=== PATIENT | male | born 1930 | race African-American/Black ===

== ENCOUNTER 2016-10-21 12:33 | Outpatient (CLI) | payer MEDICARE, MEDICAID | END 2016-10-21 14:03 | disposition home or self-care (01) | LOC: CAT 12:33 | DX: R05 Cough (principal) | CPT/HCPCS: 71250 ==

== ENCOUNTER 2018-04-19 15:40 | Emergency (ER) | payer MEDICARE, MEDICAID ==
[~2018-04-19] VITALS: Ht 162.6 cm; Wt 54.4 kg
[2018-04-19 15:50] VITALS: BP 135/56
--- NOTE | 2018-04-19 16:54 | Emergency Room Report ---
History of Present Illness General Chief Complaint: Dyspnea/Respdistress Source: Patient Present Illness HPI this is an 87-year-old male who complains of leg swelling bilaterally for about 10 days. He denies any shortness of breath oor chest pain. No exacerbating or relieving fact Denies any nausea or vomiting. He states he does not take any diuret Allergies: Coded Allergies: PENICILLINS (Verified Allergy, Severe, Hives, 04/19/18) Patient History Past Medical History: COPD Past Surgical History: none Nursing Documentation-[facility] Past Medical History: No History, Except For Hx Hypertension: Yes Hx COPD: Yes Review of Systems All Other Systems: negative except mentioned in HPI Physical Exam Vital Signs Date Time Temp Pulse Resp B/P (MAP) Pulse Ox O2 Delivery O2 Flow Rate FiO2 04/19/18 15:46 98.1 99 28 121/60 89 Room Air Eyes: bilateral eye normal inspection, bilateral eye PERRL ENT: hearing grossly normal, normal pharynx, no angioedema, normal voice Respiratory: chest non-tender, lungs clear, normal breath sounds, speaking full sentences Cardiovascular #2: 2+ carotid (R), 2+ carotid (L), 2+ radial (R), 2+ radial (L) , 2+ dorsalis pedis (R), 2+ dorsalis pedis (L) Gastrointestinal: normal bowel sounds, non tender, soft, non-distended, no guarding, no rebound Musculoskeletal: back normal, gait/station normal, normal range of motion, non- tender, calf tenderness Neurologic: alert, oriented x3, responsive, motor strength/tone normal, sensory intact, speech normal Skin: normal color, no rash, warm/dry, well hydrated Medical Decision Making Diagnostic Impression: Primary Impression: Dyspnea ER Course Patient presented with significant complexes or risk requiring multiple bedside evaluations. Patient alert and nontoxic-appearing. No other associated symptoms. Particularly very concerned about possible congestive heart failure, pulmonary edema, pneumonia, pneumothorax. Also considered acute coronary syndrome. EKG and blood work was reviewed. The patient is not tachypneic, tachycardic, hypoxic. At this time, I feel the patient may be discharged home with very close follow-up with his primary care physician and to return is any change in symptoms or worsening symptoms. Laboratory Tests Test 04/19/18 16:55 White Blood Count 7.1 K/UL (4.8-10.8) Red Blood Count 4.00 M/UL (4.70-6.10) L Hemoglobin 11.1 G/DL (14.2-18.0) L Hematocrit 34.2 % (42.0-52.0) L Mean Corpuscular Volume 85 FL (80-99) Mean Corpuscular Hemoglobin 27.7 PG (27.0-31.0) Mean Corpuscular Hemoglobin Concent 32.4 G/DL (32.0-36.0) Red Cell Distribution Width 13.5 % (11.6-14.8) Platelet Count 323 K/UL (150-450) Mean Platelet Volume 5.6 FL (6.5-10.1) L Neutrophils (%) (Auto) 52.8 % (45.0-75.0) Lymphocytes (%) (Auto) 31.1 % (20.0-45.0) Monocytes (%) (Auto) 7.7 % (1.0-10.0) Eosinophils (%) (Auto) 6.8 % (0.0-3.0) H Basophils (%) (Auto) 1.6 % (0.0-2.0) Sodium Level 144 MMOL/L (136-145) Potassium Level 3.1 MMOL/L (3.5-5.1) L Chloride Level 107 MMOL/L (98-107) Carbon Dioxide Level 29 MMOL/L (21-32) Anion Gap 8 mmol/L (5-15) Blood Urea Nitrogen 9 mg/dL (7-18) Creatinine 0.8 MG/DL (0.55-1.30) Estimate Glomerular Filtration Rate mL/min (>60) Glucose Level 102 MG/DL (74-106) Calcium Level 9.4 MG/DL (8.5-10.1) Total Bilirubin 0.3 MG/DL (0.2-1.0) Aspartate Amino Transferase (AST) 23 U/L (15-37) Alanine Aminotransferase (ALT) 17 U/L (12-78) Alkaline Phosphatase 74 U/L (46-116) Troponin I 0.007 ng/mL (0.000-0.056) Pro-B-Type Natriuretic Peptide 126 pg/mL (0-125) H Total Protein 8.4 G/DL (6.4-8.2) H Albumin 3.0 G/DL (3.4-5.0) L Globulin 5.4 g/dL Albumin/Globulin Ratio 0.6 (1.0-2.7) L EKG Diagnostic Results EKG Time: 17:45 Rate: normal Rhythm: NSR ST Segments: no acute changes ASA given to the pt in ED: No Chest X-Ray Diagnostic Results Chest X-Ray Diagnostic Results : # of Views/Limited/Complete: 1 View Indication: Shortness of Breath EP Interpretation: Yes PA Xray: Interpretation reviewed Last Vital Signs Date Time Temp Pulse Resp B/P (MAP) Pulse Ox O2 Delivery O2 Flow Rate FiO2 04/19/18 16:51 93 22 Room Air 04/19/18 15:50 98.1 135/56 96 Status: unchanged Disposition: HOME, SELF-CARE Condition: Stable Patient Instructions: Shortness of Breath, [id number] STACIA WILLETT Apr 19, 2018 16:54
--- NOTE | 2018-04-19 17:25 | Diagnostic Imaging Report ---
Indication: Shortness of breath Technique: One view of the chest Comparison: none Findings: Lungs are hyperinflated. No acute infiltrates, effusions, or congestion. Tortuous calcified aorta. Normal heart size. Upper mediastinum unremarkable. Impression: No acute process. Hyperinflation, likely COPD
[2018-04-19 17:30] LABS: BASOPHILS % (AUTO) 1.6 % (0.0-2.0); EOSINOPHILS % (AUTO) 6.8 % (0.0-3.0); HEMATOCRIT 34.2 % (42.0-52.0); HEMOGLOBIN 11.1 G/DL (14.2-18.0); LYMPHOCYTES % (AUTO) 31.1 % (20.0-45.0); MEAN CORPUSCULAR VOLUME 85 FL (80-99); MONOCYTES % (AUTO) 7.7 % (1.0-10.0); NEUTROPHILS % (AUTO) 52.8 % (45.0-75.0); PLATELET COUNT 323 K/UL (150-450); RED CELL DISTRIBUTION WIDTH 13.5 % (11.6-14.8); WHITE BLOOD COUNT 7.1 K/UL (4.8-10.8)
[2018-04-19 17:41] LABS: ANION GAP 8 mmol/L (5-15); BLOOD UREA NITROGEN 9 mg/dL (7-18); CALCIUM 9.4 MG/DL (8.5-10.1); CARBON DIOXIDE 29 MMOL/L (21-32); CHLORIDE 107 MMOL/L (98-107); CREATININE 0.8 MG/DL (0.55-1.30); POTASSIUM 3.1 MMOL/L (3.5-5.1); SODIUM 144 MMOL/L (136-145)
[2018-04-19 17:50] VITALS: BP 132/53
[2018-04-19 17:52] LABS: ALANINE AMINOTRANSFERASE 17 U/L (12-78); ALBUMIN/GLOBULIN RATIO 0.6 (1.0-2.7); ALKALINE PHOSPHATASE 74 U/L (46-116); ASPARTATE AMINO TRANSFERASE 23 U/L (15-37); BILIRUBIN,TOTAL 0.3 MG/DL (0.2-1.0)
[2018-04-19 20:00] VITALS: BP 126/61
[2018-04-19 20:15] VITALS: BP 126/61
== END 2018-04-19 20:10 | disposition home or self-care (01) ==
LOC: EMR 16:58
DX: R06.00 Dyspnea, unspecified (principal); J44.9 Chronic obstructive pulmonary disease, unspecified; I10 Essential (primary) hypertension; Z88.0 Allergy status to penicillin
CPT/HCPCS: 36415; 71045; 80053; 83880; 84484; 85025; 93005; 99283

== ENCOUNTER 2018-05-18 15:28 | Inpatient (IN) | payer MEDICARE, MEDICAID ==
[~2018-05-18] VITALS: Ht 170.2 cm; Wt 52.6 kg
[2018-05-18] MEDS ORDERED: Albuterol/Ipratropium 3ml neb HHN ONE (15:45)
[2018-05-18 16:17] LABS: BASOPHILS % (AUTO) 1.3 % (0.0-2.0); EOSINOPHILS % (AUTO) 0.4 % (0.0-3.0); HEMATOCRIT 41.1 % (42.0-52.0); HEMOGLOBIN 12.7 G/DL (14.2-18.0); LYMPHOCYTES % (AUTO) 12.8 % (20.0-45.0); MEAN CORPUSCULAR VOLUME 84 FL (80-99); MONOCYTES % (AUTO) 8.8 % (1.0-10.0); NEUTROPHILS % (AUTO) 76.8 % (45.0-75.0); PLATELET COUNT 310 K/UL (150-450); RED CELL DISTRIBUTION WIDTH 13.8 % (11.6-14.8); WHITE BLOOD COUNT 8.1 K/UL (4.8-10.8)
--- NOTE | 2018-05-18 16:18 | Diagnostic Imaging Report ---
Indication: Dyspnea Comparison: None A single view chest radiograph was obtained. Findings: Lungs are hyperexpanded. There is slight elevation of the left hemidiaphragm. There is a prominent skinfold oriented vertically along the left lateral chest. This is not a pneumothorax. The bones are osteopenic. The heart is normal in size. Aorta is calcified. IMPRESSION: No acute findings. COPD
[2018-05-18 16:28] LABS: ANION GAP 14 mmol/L (5-15); BLOOD UREA NITROGEN 14 mg/dL (7-18); CALCIUM 9.6 MG/DL (8.5-10.1); CARBON DIOXIDE 29 MMOL/L (21-32); CHLORIDE 107 MMOL/L (98-107); CREATININE 0.8 MG/DL (0.55-1.30); POTASSIUM 3.2 MMOL/L (3.5-5.1); SODIUM 150 MMOL/L (136-145)
[2018-05-18 16:29] VITALS: BP 190/75
--- NOTE | 2018-05-18 16:34 | Diagnostic Imaging Report ---
Indication: Altered mental status Technique: Contiguous 5 mm thick transaxial imaging of the head obtained in a Siemens Sensation [address] scanner. Soft tissue and bone windows generated. Automatic Exposure Control was utilized. Total Dose length Product (DLP): 1576.[address] Dose Index Volume (CTDIvol): 70.38 mGy Comparison: none Findings: There is marked prominence of the ventricles, basal cisterns, and cerebral sulci consistent with atrophy. Moderate to severe nonspecific, white matter hypoattenuation is noted throughout the brain likely due to chronic small vessel disease. There are cystic foci within the thalami bilaterally, the right putamen, the left caudate, granda radiata, findings consistent with old small vessel infarcts. There is no midline shift, edema, acute hemorrhage, mass effect, or abnormal extra-axial fluid collections. Bones and extra osseous soft tissues are unremarkable. There is artifact in the posterior fossa limiting evaluation. Impression: No acute intracranial bleed, mass effect or edema identified. Multiple old lacunar infarcts. Severe atrophy of the brain. Moderate to severe chronic small vessel disease involving white matter tracts. The CT scanner at [facility] is accredited by the [employer] and the scans are performed using dose optimization techniques as appropriate to a performed exam including Automatic Exposure control.
--- NOTE | 2018-05-18 16:36 | Emergency Room Report ---
History of Present Illness General Chief Complaint: Altered Level of Consciousness Source: Patient, EMS Present Illness HPI Patient is an 87-year-old male brought in by EMS after being found lying on the ground. The patient lives by himself. He was normal noted to have prior history of COPD. Patient had been noted to be unable to ambulate. Allergies: Coded Allergies: PENICILLINS (Verified Allergy, Severe, Hives, 04/19/18) Patient History Past Medical History: see triage record Reviewed Nursing Documentation: PMH: Agreed; PSxH: Agreed Nursing Documentation-PMH Past Medical History: No History, Except For Hx Hypertension: Yes Hx Asthma: Yes Hx COPD: Yes Hx Cancer: Yes - prostate Review of Systems All Other Systems: negative except mentioned in HPI Physical Exam Vital Signs Date Time Temp Pulse Resp B/P (MAP) Pulse Ox O2 Delivery O2 Flow Rate FiO2 05/18/18 15:25 102 16 190/96 97 Room Air 05/18/18 16:18 21 05/18/18 16:29 98.0 Sp02 EP Interpretation: reviewed, normal General Appearance: lethargic, thin, Chronically Ill Head: atraumatic ENT: normal ENT inspection, dry mucus membranes Neck: normal inspection, full range of motion, supple, no bony tend Respiratory: normal inspection, no respiratory distress, no retraction, wheezing Cardiovascular #1: no edema, tachycardia Gastrointestinal: normal inspection, normal bowel sounds, non tender, soft, no guarding, no hernia Genitourinary: no CVA tenderness Musculoskeletal: normal inspection, back normal, normal range of motion Neurologic: responsive, lab clerk III-XII nml as tested, motor weakness, other - confused, able to state name Psychiatric: normal inspection, judgement/insight normal, mood/affect normal Skin: normal inspection, normal color, no rash Medical Decision Making Diagnostic Impression: Primary Impression: Altered level of consciousness Additional Impressions: COPD exacerbation Dehydration ER Course Patient presented for altered mental status. Differential diagnosis included but was not limited to ischemic stroke, subarachnoid hemorrhage, hypoglycemia, spinal cord injury, neurodegenerative disorder, urinary tract infection, hypoxemia. The patient was noted to have markedly confused mental status. CT head showed diffuse atrophy without evident intracranial hemorrhage or CVA. The patient started on IV hydration and given breathing treatments. Initial laboratory testing showed a mildly elevated CPK. Dr. Julien Chery was contacted for inpatient management. Labs Test 05/18/18 15:56 05/18/18 16:44 White Blood Count 8.1 K/UL (4.8-10.8) Red Blood Count 4.90 M/UL (4.70-6.10) Hemoglobin 12.7 G/DL (14.2-18.0) Hematocrit 41.1 % (42.0-52.0) Mean Corpuscular Volume 84 FL (80-99) Mean Corpuscular Hemoglobin 26.0 PG (27.0-31.0) Mean Corpuscular Hemoglobin Concent 31.0 G/DL (32.0-36.0) Red Cell Distribution Width 13.8 % (11.6-14.8) Platelet Count 310 K/UL (150-450) Mean Platelet Volume 7.1 FL (6.5-10.1) Neutrophils (%) (Auto) 76.8 % (45.0-75.0) Lymphocytes (%) (Auto) 12.8 % (20.0-45.0) Monocytes (%) (Auto) 8.8 % (1.0-10.0) Eosinophils (%) (Auto) 0.4 % (0.0-3.0) Basophils (%) (Auto) 1.3 % (0.0-2.0) Sodium Level 150 MMOL/L (136-145) Potassium Level 3.2 MMOL/L (3.5-5.1) Chloride Level 107 MMOL/L (98-107) Carbon Dioxide Level 29 MMOL/L (21-32) Anion Gap 14 mmol/L (5-15) Blood Urea Nitrogen 14 mg/dL (7-18) Creatinine 0.8 MG/DL (0.55-1.30) Estimat Glomerular Filtration Rate mL/min (>60) Glucose Level 108 MG/DL (74-106) Lactic Acid Level 1.50 mmol/L (0.4-2.0) Calcium Level 9.6 MG/DL (8.5-10.1) Phosphorus Level 3.6 MG/DL (2.5-4.9) Magnesium Level 2.0 MG/DL (1.8-2.4) Total Bilirubin 0.5 MG/DL (0.2-1.0) Aspartate Amino Transf (AST/SGOT) 51 U/L (15-37) Alanine Aminotransferase (ALT/SGPT) 30 U/L (12-78) Alkaline Phosphatase 66 U/L (46-116) Total Creatine Kinase 651 U/L (26-308) Creatine Kinase MB 3.5 NG/ML (0.0-3.6) Creatine Kinase MB Relative Index 0.5 Troponin I 0.018 ng/mL (0.000-0.056) Total Protein 8.5 G/DL (6.4-8.2) Albumin 3.2 G/DL (3.4-5.0) Globulin 5.3 g/dL Albumin/Globulin Ratio 0.6 (1.0-2.7) Lipase 51 U/L (73-393) Urine Color Yellow Urine Appearance Clear Urine pH 5 (4.5-8.0) Urine Specific [place] 1.020 (1.005-1.035) Urine Protein 3+ (NEGATIVE) Urine Glucose (UA) Negative (NEGATIVE) Urine Ketones 4+ (NEGATIVE) Urine Blood 5+ (NEGATIVE) Urine Nitrite Negative (NEGATIVE) Urine Bilirubin Negative (NEGATIVE) Urine Urobilinogen Normal MG/DL (0.0-1.0) Urine Leukocyte Esterase Negative (NEGATIVE) Urine RBC 15-20 /HPF (0 - 0) Urine WBC 2-4 /HPF (0 - 0) Urine Squamous Epithelial Cells None /LPF (NONE/OCC) Urine Bacteria Few /HPF (NONE) EKG Diagnostic Results Rate: tachycardiac Rhythm: NSR ST Segments: no acute changes Rhythm Strip Diag. Results EP Interpretation: yes Rhythm: NSR, no PVC's, no ectopy Last Vital Signs Date Time Temp Pulse Resp B/P (MAP) Pulse Ox O2 Delivery O2 Flow Rate FiO2 05/18/18 16:29 93 23 Room Air 05/18/18 16:29 98.0 190/75 99 05/18/18 16:21 21 Status: unchanged Disposition: ADMITTED INPATIENT Condition: Serious Alex Yanez MD May 18, 2018 16:36
[2018-05-18 16:46] LABS: ALANINE AMINOTRANSFERASE 30 U/L (12-78); ALBUMIN 3.2 G/DL (3.4-5.0); ALBUMIN/GLOBULIN RATIO 0.6 (1.0-2.7); ALKALINE PHOSPHATASE 66 U/L (46-116); ASPARTATE AMINO TRANSFERASE 51 U/L (15-37); BILIRUBIN,TOTAL 0.5 MG/DL (0.2-1.0); CKMB 3.5 NG/ML (0.0-3.6); CREATINE KINASE 651 U/L (26-308); PHOSPHORUS 3.6 MG/DL (2.5-4.9)
--- NOTE | 2018-05-18 16:49 | Diagnostic Imaging Report ---
Indication: Abdominal pain Technique: Continuous helical transaxial imaging of the abdomen and pelvis was obtained from the lung bases to the pubic symphysis. No intravenous contrast was administered. Coronal 2-D reformats were also obtained. Automatic Exposure Control was utilized. Total Dose length Product (DLP): 491.[address] Dose Index Volume (CTDIvol): 11.02 mGy Comparison: none Findings: Lung bases are clear. There is some mild scarring at the left lung base. There are extensive calcifications present within the liver and spleen system with old granulomatous disease. Kidneys are unremarkable. There is no hydronephrosis. There is some layering hyperdensity within the gallbladder which may be small stones or sludge. Aorta is moderately calcified. At the junction of the head and body of the pancreas there is suggestion of a small cystic focus. This is questionable as seen for example on axial image 29. Normal appendix is demonstrated. Urinary bladder is distended. There are bilateral inguinal hernias containing fat. The prostate gland is enlarged measuring approximately 4.8 x 5.5 x 5.5 cm. Diverticula noted throughout the colon. There is narrowing of intervertebral discs and accompanying endplate osteophyte formation. Hypertrophied facet joints also demonstrated.. Bones are osteopenic. In addition there are thickened trabecula markings and question of some cortical thickening involving the right ilium. Query Paget's disease. There is a nonspecific sclerotic focus also noted within the left ilium adjacent to the SI joint. IMPRESSION: Gallbladder sludge versus stones. Nonspecific ill-defined sclerotic focus in the left ilium measuring 2.6 cm. The nature of this finding is not known but differential includes metastatic disease. Further evaluation is recommended. Moderate arterial vascular disease. Abnormal appearance of the right ilium with increased trabecular markings, nonspecific. Consider possibility of Paget's disease. Old granulomatous disease. Diverticulosis of the colon. No definite diverticulitis. Distended urinary bladder Prostate hypertrophy Small bilateral inguinal hernias containing fat. Normal appendix. Degenerative changes of the spine The CT scanner at [facility] is accredited by the [employer] and the scans are performed using dose optimization techniques as appropriate to a performed exam including Automatic Exposure control.
[2018-05-18 17:11] LABS: APPEARANCE,URINE CLEAR; BILIRUBIN, URINE NEGATIVE (NEGATIVE); GLUCOSE, URINE (UA) NEGATIVE (NEGATIVE); KETONES,URINE 4+ (NEGATIVE); LEUKOCYTE ESTERASE ,URINE NEGATIVE (NEGATIVE); NITRITE,URINE NEGATIVE (NEGATIVE); PH,URINE 5 (4.5-8.0); PROTEIN,URINE 3+ (NEGATIVE); UROBILINOGEN,URINE NORMAL MG/DL (0.0-1.0)
[2018-05-18] MEDS ORDERED: Solu-MEDROL 125mg Inj IVP ONE (17:15)
[2018-05-18 17:16] LABS: COLOR,URINE YELLOW
[2018-05-18] MEDS ORDERED: Miralax 17gm pkt ORAL PRN (18:30)
[2018-05-18] MEDS ORDERED: LORazepam Inj 2mg/ml 1ml IV PRN (18:30)
[2018-05-18] MEDS ORDERED: Zolpidem 5mg tab ORAL PRN (18:30)
[2018-05-18] MEDS ORDERED: Mylanta II UD 30ml ORAL PRN (18:30)
[2018-05-18 19:06] VITALS: BP 161/73
[2018-05-18] MEDS ORDERED: Morphine Sulfate 4mg/ml Inj (IV/IM USE ONLY) IVP PRN (20:00)
[2018-05-18 21:25] VITALS: BP 160/75
[2018-05-19] VITALS: BP 151/72
[2018-05-19 04:00] VITALS: BP 135/72
[2018-05-19 04:07] LABS: HEMATOCRIT 40.1 % (42.0-52.0); HEMOGLOBIN 12.5 G/DL (14.2-18.0); MEAN CORPUSCULAR VOLUME 83 FL (80-99); PLATELET COUNT 278 K/UL (150-450); RED BLOOD COUNT 4.81 M/UL (4.70-6.10); RED CELL DISTRIBUTION WIDTH 13.9 % (11.6-14.8); WHITE BLOOD COUNT 6.5 K/UL (4.8-10.8)
[2018-05-19 04:42] LABS: ALANINE AMINOTRANSFERASE 24 U/L (12-78); ALBUMIN 2.8 G/DL (3.4-5.0); ALBUMIN/GLOBULIN RATIO 0.5 (1.0-2.7); ALKALINE PHOSPHATASE 63 U/L (46-116); ANION GAP 14 mmol/L (5-15); ASPARTATE AMINO TRANSFERASE 43 U/L (15-37); BILIRUBIN,TOTAL 0.4 MG/DL (0.2-1.0); BLOOD UREA NITROGEN 15 mg/dL (7-18); CALCIUM 9.2 MG/DL (8.5-10.1); CARBON DIOXIDE 26 MMOL/L (21-32); CHLORIDE 108 MMOL/L (98-107); CHOLESTEROL 149 MG/DL (< 200); CREATININE 0.9 MG/DL (0.55-1.30); HDL CHOLESTEROL 88 MG/DL (40-60); POTASSIUM 3.3 MMOL/L (3.5-5.1); SODIUM 148 MMOL/L (136-145); TRIGLYCERIDES 60 MG/DL (30-150)
[2018-05-19 08:00] VITALS: BP 141/55
--- NOTE | 2018-05-19 10:53 | Consultation ---
History of Present Illness General Date patient seen: May 19, 2018 Time patient seen: 09:45 Chief Complaint: Altered Level of Consciousness Referring physician: dr Stanton Reason for Consultation: COPD, possible exacerbation Present Illness HPI 87y/old male with PMH of hypertension, COPD/asthma, prostate cancer, brought to the emergency department by paramedics after being found lying on the ground. Patient lives by himself. Apparently he was awake and walking prior to this incident. Patient noted to be unable to ambulate. Upon evaluation , patient 's blood pressure was severely elevated- 190/96. Pulse was 102 Laboratory workup revealed no leukocytosis, hemoglobin 12.7 ,hematocrit 41.1. Potassium 3.2. Lactic acid 1.5 AST 51 CK 651 Troponin negative , ECG SR, no acute ischemic changes Albumin 3.2 TSH elevated 14 Urinalysis revealed no evidence of UTI. CT of the head revealed no acute intracranial bleeding mass effect or edema. Multiple old lacunar infarcts. Severe atrophy of the brain. Moderate to severe chronic small vessel disease, involving white matter tracts. Patient admitted with diagnoses of altered level of consciousness, dehydration , COPD, for further management Allergies: Coded Allergies: PENICILLINS (Verified Allergy, Severe, Hives, 04/19/18) Medication History Scheduled Albuterol Sulfate* (Albuterol Sulfate Mdi*), 2 PUFF INH Q4H, (Reported) Diazepam* (Diazepam*), 10 MG ORAL BEDTIME, (Reported) Lisinopril (Lisinopril*), 40 MG ORAL DAILY, (Reported) Nifedipine* (Nifedipine Er*), 90 MG ORAL DAILY, (Reported) Patient History Healthcare decision maker N Resuscitation status Full Code Advanced Directive on File Past Medical/Surgical History Past Medical/Surgical History: (1) Prostate CA (2) HTN (hypertension) (3) COPD (chronic obstructive pulmonary disease) Review of Systems ROS Narrative unable to obtain due to altered level of consciousness Physical Exam General Appearance: alert - confused, garbled speech Lines, tubes and drains: peripheral HEENT: normocephalic, atraumatic Neck: supple Respiratory/Chest: lungs clear - with moderate air exchange Cardiovascular/Chest: normal peripheral pulses, no JVD, tachycardia - ST with PAC Abdomen: normal bowel sounds, soft Skin Exam: warm/dry Neurologic: abnormal gait, other - awake, confused, garbled speech Last 24 Hour Vital Signs Date Time Temp Pulse Resp B/P (MAP) Pulse Ox O2 Delivery O2 Flow Rate FiO2 05/19/18 08:00 Room Air 05/19/18 08:00 87 05/19/18 08:00 97.2 86 22 141/55 (83) 93 05/19/18 04:00 Room Air 05/19/18 04:00 97.4 84 20 135/72 (93) 95 05/19/18 04:00 100 05/19/18 00:00 97.8 84 18 151/72 (98) 97 05/19/18 00:00 Room Air 05/19/18 00:00 88 05/18/18 22:00 Room Air 05/18/18 21:25 97.9 104 20 160/75 (103) 97 05/18/18 21:21 103 05/18/18 21:20 97.8 84 22 127/50 97 Room Air 05/18/18 19:06 98.0 78 18 161/73 96 Room Air 05/18/18 16:29 93 23 Room Air 05/18/18 16:29 98.0 93 23 190/75 99 Room Air 05/18/18 16:23 100 25 96 Room Air 21 05/18/18 16:21 101 24 98 Room Air 21 05/18/18 16:18 101 24 Room Air 21 05/18/18 15:25 102 16 190/96 97 Room Air Intake and Output 05/18/18 05/19/18 18:59 06:59 Output Total 0 ml 200 ml Balance 0 ml -200 ml Output Urine Total 0 ml 200 ml Laboratory Tests Test 05/18/18 15:56 05/18/18 16:44 05/19/18 03:40 White Blood Count 8.1 K/UL (4.8-10.8) 6.5 K/UL (4.8-10.8) Red Blood Count 4.90 M/UL (4.70-6.10) 4.81 M/UL (4.70-6.10) Hemoglobin 12.7 G/DL (14.2-18.0) L 12.5 G/DL (14.2-18.0) L Hematocrit 41.1 % (42.0-52.0) L 40.1 % (42.0-52.0) L Mean Corpuscular Volume 84 FL (80-99) 83 FL (80-99) Mean Corpuscular Hemoglobin 26.0 PG (27.0-31.0) L 25.9 PG (27.0-31.0) L Mean Corpuscular Hemoglobin Concent 31.0 G/DL (32.0-36.0) L 31.0 G/DL (32.0-36.0) L Red Cell Distribution Width 13.8 % (11.6-14.8) 13.9 % (11.6-14.8) Platelet Count 310 K/UL (150-450) 278 K/UL (150-450) Mean Platelet Volume 7.1 FL (6.5-10.1) 7.3 FL (6.5-10.1) Neutrophils (%) (Auto) 76.8 % (45.0-75.0) H % (45.0-75.0) Lymphocytes (%) (Auto) 12.8 % (20.0-45.0) L % (20.0-45.0) Monocytes (%) (Auto) 8.8 % (1.0-10.0) % (1.0-10.0) Eosinophils (%) (Auto) 0.4 % (0.0-3.0) % (0.0-3.0) Basophils (%) (Auto) 1.3 % (0.0-2.0) % (0.0-2.0) Sodium Level 150 MMOL/L (136-145) H 148 MMOL/L (136-145) H Potassium Level 3.2 MMOL/L (3.5-5.1) L 3.3 MMOL/L (3.5-5.1) L Chloride Level 107 MMOL/L (98-107) 108 MMOL/L (98-107) H Carbon Dioxide Level 29 MMOL/L (21-32) 26 MMOL/L (21-32) Anion Gap 14 mmol/L (5-15) 14 mmol/L (5-15) Blood Urea Nitrogen 14 mg/dL (7-18) 15 mg/dL (7-18) Creatinine 0.8 MG/DL (0.55-1.30) 0.9 MG/DL (0.55-1.30) Estimat Glomerular Filtration Rate mL/min (>60) mL/min (>60) Glucose Level 108 MG/DL (74-106) H 147 MG/DL (74-106) H Lactic Acid Level 1.50 mmol/L (0.4-2.0) Calcium Level 9.6 MG/DL (8.5-10.1) 9.2 MG/DL (8.5-10.1) Phosphorus Level 3.6 MG/DL (2.5-4.9) Magnesium Level 2.0 MG/DL (1.8-2.4) Total Bilirubin 0.5 MG/DL (0.2-1.0) 0.4 MG/DL (0.2-1.0) Aspartate Amino Transf (AST/SGOT) 51 U/L (15-37) H 43 U/L (15-37) H Alanine Aminotransferase (ALT/SGPT) 30 U/L (12-78) 24 U/L (12-78) Alkaline Phosphatase 66 U/L (46-116) 63 U/L (46-116) Total Creatine Kinase 651 U/L (26-308) H Creatine Kinase MB 3.5 NG/ML (0.0-3.6) Creatine Kinase MB Relative Index 0.5 Troponin I 0.018 ng/mL (0.000-0.056) Total Protein 8.5 G/DL (6.4-8.2) H 8.1 G/DL (6.4-8.2) Albumin 3.2 G/DL (3.4-5.0) L 2.8 G/DL (3.4-5.0) L Globulin 5.3 g/dL 5.3 g/dL Albumin/Globulin Ratio 0.6 (1.0-2.7) L 0.5 (1.0-2.7) L Lipase 51 U/L (73-393) L Urine Color Yellow Urine Appearance Clear Urine pH 5 (4.5-8.0) Urine Specific [place] 1.020 (1.005-1.035) Urine Protein 3+ (NEGATIVE) H Urine Glucose (UA) Negative (NEGATIVE) Urine Ketones 4+ (NEGATIVE) H Urine Blood 5+ (NEGATIVE) H Urine Nitrite Negative (NEGATIVE) Urine Bilirubin Negative (NEGATIVE) Urine Urobilinogen Normal MG/DL (0.0-1.0) Urine Leukocyte Esterase Negative (NEGATIVE) Urine RBC 15-20 /HPF (0 - 0) H Urine WBC 2-4 /HPF (0 - 0) Urine Squamous Epithelial Cells None /LPF (NONE/OCC) Urine Bacteria Few /HPF (NONE) Neutrophils % (Manual) Pending Lymphocytes % (Manual) Pending Platelet Estimate Pending Platelet Morphology Pending Triglycerides Level 60 MG/DL (30-150) Cholesterol Level 149 MG/DL (< 200) LDL Cholesterol 43 mg/dL (<100) HDL Cholesterol 88 MG/DL (40-60) H Cholesterol/HDL Ratio 1.7 (3.3-4.4) L Thyroid Stimulating Hormone (TSH) 14.047 uiU/mL (0.358-3.740) Microbiology Date/Time Source Procedure Growth Status 05/18/18 15:58 Nasal Nares Influenza Types A,B Antigen (ALEJANDRO) - Final Complete Height (Feet): 5 Height (Inches): 7.00 Weight (Pounds): 115 Medications Current Medications Medications (Trade) Dose Ordered Sig/Rafa Route PRN Reason Start Time Stop Time Status Last Admin Dose Admin Acetaminophen (Tylenol) 650 mg Q4H PRN ORAL fever 05/18/18 18:30 06/17/18 18:29 Al Hydroxide/Mg Hydroxide (Mylanta II) 30 ml Q6H PRN ORAL dyspepsia 05/18/18 18:30 06/17/18 18:29 Dextrose (Dextrose 50%) STAT PRN IV Hypoglycemia 05/18/18 18:30 06/17/18 18:29 Lorazepam (Ativan 2mg/ml 1ml) 0.5 mg Q4H PRN IV For Anxiety 05/18/18 18:30 05/25/18 18:29 Morphine Sulfate (Morphine Sulfate) 2 mg Q4H PRN IVP pain 05/18/18 20:00 05/25/18 19:59 Ondansetron HCl (Zofran) 4 mg Q6H PRN IVP Nausea & Vomiting 05/18/18 18:30 06/17/18 18:29 Polyethylene Glycol (Miralax) 17 gm HSPRN PRN ORAL Constipation 05/18/18 18:30 06/17/18 18:29 Zolpidem Tartrate (Ambien) 5 mg HSPRN PRN ORAL Insomnia 05/18/18 18:30 05/25/18 18:29 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 COPD Dehydration Hx of prostate Ca Sclerotic focus in the left ilium, r/o bone mets Hyper Na ( due to dehydration ) Hypokalemia Malnutrition Elevated TSH PLAN OF CARE RAFAEL CT head no acute IC pathology, 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
[2018-05-19 12:00] VITALS: BP 151/68
[2018-05-19] MEDS ORDERED: Albuterol/Ipratropium 3ml neb HHN PRN (15:30)
[2018-05-19 16:00] VITALS: BP 133/64
--- NOTE | 2018-05-19 19:00 | History and Physical Report ---
DATE OF ADMISSION: 05/19/2018 CONSULTANTS: 1. Bridger Robin M.D. 2. Ang Hickman M.D. 3. Andrey Snider M.D. 4. Moo Huber M.D. 5. Brandon De La Torre M.D. CHIEF COMPLAINT: Altered mental status, fall, could not get up, dehydration, hypertension, and chronic obstructive pulmonary disease exacerbation. BRIEF HISTORY: This is an 87-year-old male, who lives at home by himself, apparently fell in the evening and could not get up. He was trapped there all night. Apparently per ER, the patient was found down and brought to [facility] last night for care. He did not lose consciousness. No chest pain. No shortness of breath. The patient is diagnosed with altered mental status, COPD exacerbation, dehydration, hypertension, and admitted to [facility] for further care. Currently, slightly short of breath. Slightly weak in bed, oriented x2, and in no acute distress. REVIEW OF SYSTEMS: No chest pain. Slight short of breath. No nausea, vomiting, or diarrhea. PAST MEDICAL HISTORY: As mentioned, hypertension, chronic obstructive pulmonary disease, and dehydration. PAST SURGERIES: None. MEDICATIONS: Include morphine, Tylenol, MiraLAX, Zofran, Ambien, Ativan, intravenous fluids, potassium, methylprednisolone, and albuterol. ALLERGIES: Penicillin. SOCIAL HISTORY: No smoking. No alcohol. No intravenous drug abuse. FAMILY HISTORY: Noncontributory. PHYSICAL EXAMINATION: GENERAL: Calm in bed, oriented x2. Slight short of breath. VITAL SIGNS: Temperature 97 degrees, pulse 84, respirations 20, and blood pressure 135/72. CARDIOVASCULAR: No murmurs. LUNGS: Poor air exchange. ABDOMEN: Bowel sounds distant. EXTREMITIES: No cyanosis, clubbing, or edema. NEUROLOGIC: The patient moves all extremities, slightly weak. LABORATORY AND DIAGNOSTIC DATA: Labs, at this time, show hemoglobin 12.5, otherwise CBC is normal. BMP shows sodium 148, potassium 3.3, chloride 108, glucose 147. AST 43. Troponin 0.018. Albumin 2.8. Urinalysis show 5+ blood, 4+ ketones, and 3+ protein. ASSESSMENT: 1. Altered mental status. 2. Chronic obstructive pulmonary disease exacerbation. 3. Dehydration. 4. Anemia. 5. Hypertension. 6. Diabetes. 7. Malnutrition. PLAN: 1. O2 and pulmonary treatment. 2. Antibiotics per Infectious Disease p.r.n. 3. Blood pressure and blood sugar control. 4. Dietary followup. 5. Resume home medications. 6. CBC and BMP in the morning. Julien Chery D.O. DR: [facility]IONEL JOB#: [id number] CC: MARGIE
[2018-05-19 20:00] VITALS: BP 141/41
[2018-05-19] MEDS ORDERED: NIFEDIPINE ER60 M2 ORAL (20:07)
[2018-05-19] MEDS ORDERED: LISINOPRIL20 MG ORAL (20:12)
[2018-05-19] MEDS ORDERED: DIAZEPAM10 MG ORAL (20:12)
[2018-05-19] MEDS ORDERED: ALBUTEROL SULF8.5 GM INH (20:13)
--- NOTE | 2018-05-19 20:15 | Consultation ---
DATE OF CONSULTATION: 05/19/2018 GASTROLOGY CONSULTATION CHIEF COMPLAINT: I was asked to see this patient by Dr. Julien Chery for evaluation of abnormal liver tests and abdominal issues. HISTORY OF PRESENT ILLNESS: The patient is an unfortunate 87-year-old man, who was apparently found down at his house for an unknown period of time. He appeared to be confused and dehydrated and ill. He was brought to the emergency room where he has been hydrated and he has been doing better. He is more verbal and talkative although his speech is somewhat difficult to comprehend. The patient is unable to provide much useful information as such and therefore, most of the information is only available from the chart records. The patient has been given a regular diet and has been tolerating well without any nausea, vomiting, and diarrhea. PAST MEDICAL HISTORY: History of chronic obstructive pulmonary disease, abnormal liver tests as described above, likely hypothyroidism given an elevated TSH, and mild anemia. MEDICATIONS: See the chart list for details. ALLERGIES: Penicillin. FAMILY HISTORY: Not available. SOCIAL HISTORY: Unobtainable. REVIEW OF SYSTEMS: Unobtainable. PHYSICAL EXAMINATION: GENERAL: A pleasant man, seen in his room, who is moving perfectly and speaking, although somewhat difficult to understand pattern. HEENT: Normocephalic and atraumatic. Dentition is poor. NECK: Supple. CHEST: Clear to auscultation except for scattered rhonchi. CARDIOVASCULAR: Revealed a regular rate. ABDOMEN: Soft and nontender. Good bowel sounds. EXTREMITIES: Revealed no edema. LABORATORY DATA: Noted. ASSESSMENT: This patient presents with altered mental status and unconsciousness. Neurology consultation should be obtained to evaluate his mental status as the patient's speech appears to be somewhat garbled. A stroke should be ruled out. In addition, the patient does have a mild degree of transaminitis, which may be either hepatic origin or in fact even brain origin. CT of the brain had been done and there appears to be [id number] chronic disease, but no acute changes or infarcts have been noted. Multiple old lacunar infarcts, however, had been reported. In respect to his liver, he has had a CT scan of the abdomen and pelvis showing a gallbladder sludge versus stones and arteriovascular disease and diverticulosis and prostatic enlargement. RECOMMENDATIONS: 1. Neurology evaluation. 2. Oral intake as tolerated. 3. Check hepatitis serologies. 4. Follow liver tests. 5. IV hydration. 6. Follow mental status. Thank you for asking me to participate in the care of this patient. Basilio Kirkpatrick M.D. DR: MARCIE JOB#: [id number] CC: MARGIE
[2018-05-20] VITALS: BP 127/59
[2018-05-20 04:00] VITALS: BP 145/59
[2018-05-20 05:06] LABS: BASOPHILS % (AUTO) 0.3 % (0.0-2.0); EOSINOPHILS % (AUTO) 0.1 % (0.0-3.0); HEMATOCRIT 35.5 % (42.0-52.0); HEMOGLOBIN 11.2 G/DL (14.2-18.0); LYMPHOCYTES % (AUTO) 14.9 % (20.0-45.0); MEAN CORPUSCULAR VOLUME 82 FL (80-99); MONOCYTES % (AUTO) 6.7 % (1.0-10.0); NEUTROPHILS % (AUTO) 78.1 % (45.0-75.0); PLATELET COUNT 252 K/UL (150-450); RED BLOOD COUNT 4.31 M/UL (4.70-6.10); RED CELL DISTRIBUTION WIDTH 13.8 % (11.6-14.8); WHITE BLOOD COUNT 12.6 K/UL (4.8-10.8)
[2018-05-20 05:27] LABS: ANION GAP 6 mmol/L (5-15); BLOOD UREA NITROGEN 22 mg/dL (7-18); CARBON DIOXIDE 33 MMOL/L (21-32); CHLORIDE 106 MMOL/L (98-107); CREATININE 0.8 MG/DL (0.55-1.30); SODIUM 145 MMOL/L (136-145)
--- NOTE | 2018-05-20 07:49 | Pulmonology Progress Note ---
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 Leukocytosis COPD Dehydration Hx of prostate Ca Sclerotic focus in the left ilium, r/o bone mets Hyper Na ( due to dehydration ) Hypokalemia Malnutrition Elevated TSH with low free T3 PLAN OF CARE [facility] CT head no acute IC pathology, significant cerebrovascular disease, hx of multiple strokes MRI brain Monday CXR c/w COPD, no acute CP pathology CT A/P noted bone abnormalities noted, with hx of prostate Ca, raises concern for bone mets, bone scan on Monday s/p IVF monitor renal parameters, trend Na, avoid nephrotoxic , replace lytes as needed replace K, Mg stable, monitor renal parameters and lytes, further correct lytes prn, avoid nephrotoxics leukocytosis possibly reactive, CXR negative, UA no evidence of UTI will repeat CXR in am and UA O2 titrate, HHN prn no evidence of COPD exacerbation a/tussive prn Venous Duplex BLE elevated TSH and low free T3. consider endo eval, will start low dose thyroid replacement pain management PT/OT dietary eval supportive care probably will need placement case discussed and evaluated by supervising physician Subjective Allergies: Coded Allergies: PENICILLINS (Verified Allergy, Severe, Hives, 04/19/18) Subjective leukocytosis today , afebrile , K-3.0 transferred to [facility] floor Objective Last 24 Hour Vital Signs Date Time Temp Pulse Resp B/P (MAP) Pulse Ox O2 Delivery O2 Flow Rate FiO2 05/20/18 04:00 98.2 87 20 145/59 (87) 97 05/20/18 04:00 76 05/20/18 04:00 Room Air 05/20/18 00:00 Room Air 05/20/18 00:00 75 05/20/18 00:00 98.4 84 16 127/59 (81) 96 05/19/18 20:59 91 05/19/18 20:00 Room Air 05/19/18 20:00 98.8 105 24 141/41 (74) 97 05/19/18 16:00 107 05/19/18 16:00 97.5 99 26 133/64 (87) 95 05/19/18 16:00 Room Air 05/19/18 12:00 97.5 111 24 151/68 (95) 93 05/19/18 12:00 Room Air 05/19/18 11:54 111 05/19/18 08:00 Room Air 05/19/18 08:00 87 05/19/18 08:00 97.2 86 22 141/55 (83) 93 Intake and Output 05/19/18 05/20/18 19:00 07:00 Intake Total 450 ml 100 ml Output Total 350 ml 400 ml Balance 100 ml -300 ml Intake Oral 450 ml 100 ml Output Urine Total 350 ml 400 ml # Bowel Movements 5 Objective General Appearance: alert , confused, garbled speech Lines, tubes and drains: peripheral HEENT: normocephalic, atraumatic Neck: supple Respiratory/Chest: lungs clear - with moderate air exchange Cardiovascular/Chest: normal peripheral pulses, no JVD, tachycardia - ST with PAC Abdomen: normal bowel sounds, soft Skin Exam: warm/dry Neurologic: abnormal gait, awake, confused, garbled speech Microbiology Date/Time Source Procedure Growth Status 05/18/18 15:56 Blood Blood Culture - Preliminary NO GROWTH AFTER 24 HOURS Resulted 05/18/18 15:50 Blood Blood Culture - Preliminary NO GROWTH AFTER 24 HOURS Resulted 05/18/18 15:58 Nasal Nares Influenza Types A,B Antigen (ALEJANDRO) - Final Complete Laboratory Tests 05/20/18 03:40: White Blood Count 12.6#H, Red Blood Count 4.31L, Hemoglobin 11.2L, Hematocrit 35.5L, Mean Corpuscular Volume 82, Mean Corpuscular Hemoglobin 26.0L, Mean Corpuscular Hemoglobin Concent 31.7L, Red Cell Distribution Width 13.8, Platelet Count 252, Mean Platelet Volume 6.7, Neutrophils (%) (Auto) 78.1H, Lymphocytes (%) (Auto) 14.9L, Monocytes (%) (Auto) 6.7, Eosinophils (%) (Auto) 0.1, Basophils (%) (Auto) 0.3, Sodium Level 145, Potassium Level 3.0L, Chloride Level 106, Carbon Dioxide Level 33H, Anion Gap 6, Blood Urea Nitrogen 22H, Creatinine 0.8, Estimat Glomerular Filtration Rate , Glucose Level 125H, Hemoglobin A1c 6.2H, Calcium Level 9.0, Magnesium Level 1.8, Free Thyroxine 1.43 , Free Triiodothyronine 2.0L, Hepatitis A IgM Antibody [Pending], Hepatitis B Surface Antigen [Pending], Hepatitis B Core IgM Antibody [Pending], Hepatitis C Antibody [Pending] Current Medications Medications (Trade) Dose Ordered Sig/Rafa Route PRN Reason Start Time Stop Time Status Last Admin Dose Admin Acetaminophen (Tylenol) 650 mg Q4H PRN ORAL fever 05/18/18 18:30 06/17/18 18:29 Al Hydroxide/Mg Hydroxide (Mylanta II) 30 ml Q6H PRN ORAL dyspepsia 05/18/18 18:30 06/17/18 18:29 Albuterol/ Ipratropium (Albuterol/ Ipratropium) 3 ml Q4H PRN HHN Shortness of Breath 05/19/18 15:30 05/24/18 15:29 Dextrose (Dextrose 50%) STAT PRN IV Hypoglycemia 05/18/18 18:30 06/17/18 18:29 Lorazepam (Ativan 2mg/ml 1ml) 0.5 mg Q4H PRN IV For Anxiety 05/18/18 18:30 05/25/18 18:29 Morphine Sulfate (Morphine Sulfate) 2 mg Q4H PRN IVP pain 05/18/18 20:00 05/25/18 19:59 Ondansetron HCl (Zofran) 4 mg Q6H PRN IVP Nausea & Vomiting 05/18/18 18:30 06/17/18 18:29 Polyethylene Glycol (Miralax) 17 gm HSPRN PRN ORAL Constipation 05/18/18 18:30 06/17/18 18:29 Zolpidem Tartrate (Ambien) 5 mg HSPRN PRN ORAL Insomnia 05/18/18 18:30 05/25/18 18:29 Celena Wan NP May 20, 2018 07:49
[2018-05-20 08:00] VITALS: BP 129/68
--- NOTE | 2018-05-20 08:49 | General Progress Note ---
Assessment/Plan Problem List: (1) Malnutrition ICD Codes: E46 - Unspecified protein-calorie malnutrition SNOMED: 74184809 (2) Diabetes ICD Codes: E11.9 - Type 2 diabetes mellitus without complications SNOMED: 07799989 (3) Anemia ICD Codes: D64.9 - Anemia, unspecified SNOMED: 943326459 (4) HTN (hypertension) ICD Codes: I10 - Essential (primary) hypertension SNOMED: 36599467 (5) Altered level of consciousness ICD Codes: R40.4 - Transient alteration of awareness SNOMED: 2265391 (6) COPD exacerbation ICD Codes: J44.1 - Chronic obstructive pulmonary disease with (acute) exacerbation SNOMED: 537249982 (7) Dehydration ICD Codes: E86.0 - Dehydration SNOMED: 96996589 (8) COPD (chronic obstructive pulmonary disease) ICD Codes: J44.9 - Chronic obstructive pulmonary disease, unspecified SNOMED: 67323081 Status: unchanged Assessment/Plan o2 pulm tx pt bp bs control cbc bmp am Subjective Constitutional: Reports: weakness Respiratory: Reports: shortness of breath Allergies: Coded Allergies: PENICILLINS (Verified Allergy, Severe, Hives, 04/19/18) All Systems: reviewed and negative except above Subjective o2nc sl anxious Objective Last 24 Hour Vital Signs Date Time Temp Pulse Resp B/P (MAP) Pulse Ox O2 Delivery O2 Flow Rate FiO2 05/20/18 04:00 98.2 87 20 145/59 (87) 97 05/20/18 04:00 76 05/20/18 04:00 Room Air 05/20/18 00:00 Room Air 05/20/18 00:00 75 05/20/18 00:00 98.4 84 16 127/59 (81) 96 05/19/18 20:59 91 05/19/18 20:00 Room Air 05/19/18 20:00 98.8 105 24 141/41 (74) 97 05/19/18 16:00 107 05/19/18 16:00 97.5 99 26 133/64 (87) 95 05/19/18 16:00 Room Air 05/19/18 12:00 97.5 111 24 151/68 (95) 93 05/19/18 12:00 Room Air 05/19/18 11:54 111 Intake and Output 05/19/18 05/20/18 19:00 07:00 Intake Total 450 ml 100 ml Output Total 350 ml 400 ml Balance 100 ml -300 ml Intake Oral 450 ml 100 ml Output Urine Total 350 ml 400 ml # Bowel Movements 5 Laboratory Tests 05/20/18 03:40: White Blood Count 12.6#H, Red Blood Count 4.31L, Hemoglobin 11.2L, Hematocrit 35.5L, Mean Corpuscular Volume 82, Mean Corpuscular Hemoglobin 26.0L, Mean Corpuscular Hemoglobin Concent 31.7L, Red Cell Distribution Width 13.8, Platelet Count 252, Mean Platelet Volume 6.7, Neutrophils (%) (Auto) 78.1H, Lymphocytes (%) (Auto) 14.9L, Monocytes (%) (Auto) 6.7, Eosinophils (%) (Auto) 0.1, Basophils (%) (Auto) 0.3, Sodium Level 145, Potassium Level 3.0L, Chloride Level 106, Carbon Dioxide Level 33H, Anion Gap 6, Blood Urea Nitrogen 22H, Creatinine 0.8, Estimat Glomerular Filtration Rate , Glucose Level 125H, Hemoglobin A1c 6.2H, Calcium Level 9.0, Magnesium Level 1.8, Free Thyroxine 1.43 , Free Triiodothyronine 2.0L, Hepatitis A IgM Antibody [Pending], Hepatitis B Surface Antigen [Pending], Hepatitis B Core IgM Antibody [Pending], Hepatitis C Antibody [Pending] Height (Feet): 5 Height (Inches): 7.00 Weight (Pounds): 115 General Appearance: lethargic EENT: normal ENT inspection Neck: normal alignment Cardiovascular: normal peripheral pulses, normal rate, regular rhythm Respiratory/Chest: chest wall non-tender, decreased breath sounds Abdomen: normal bowel sounds, non tender, soft Extremities: normal inspection Edema: no edema noted Arm (L), no edema noted Arm (R), no edema noted Leg (L), no edema noted Leg (R), no edema noted Pedal (L), no edema noted Pedal (R), no edema noted Generalized Neurologic: motor weakness Skin: normal pigmentation, warm/dry Julien Chery DO May 20, 2018 08:49
[2018-05-20] MEDS ORDERED: LORazepam Inj 2mg/ml 1ml IV PRN (08:54)
[2018-05-20] MEDS ORDERED: Mylanta II UD 30ml ORAL PRN (08:54)
[2018-05-20] MEDS ORDERED: Morphine Sulfate 4mg/ml Inj (IV/IM USE ONLY) IVP PRN (08:54)
[2018-05-20] MEDS ORDERED: Zolpidem 5mg tab ORAL PRN (08:55)
[2018-05-20] MEDS ORDERED: Miralax 17gm pkt ORAL PRN (08:55)
[2018-05-20 12:00] VITALS: BP 124/63
--- NOTE | 2018-05-20 15:54 | General Progress Note ---
Assessment/Plan Assessment/Plan Assessment - AMS - h/o CVA - abnormal LFT - Dehydration - gallstones - hypothyroid Recommendations - IVF - po diet - f/u hep serologies - Elevate HOB - replace thyroid Subjective Allergies: Coded Allergies: PENICILLINS (Verified Allergy, Severe, Hives, 04/19/18) Subjective NAD calm wet cough no events Objective Last 24 Hour Vital Signs Date Time Temp Pulse Resp B/P (MAP) Pulse Ox O2 Delivery O2 Flow Rate FiO2 05/20/18 12:00 97.3 95 18 124/63 (83) 97 05/20/18 08:00 Room Air 05/20/18 08:00 98.5 88 19 129/68 (88) 95 05/20/18 04:00 98.2 87 20 145/59 (87) 97 05/20/18 04:00 76 05/20/18 04:00 Room Air 05/20/18 00:00 Room Air 05/20/18 00:00 75 05/20/18 00:00 98.4 84 16 127/59 (81) 96 05/19/18 20:59 91 05/19/18 20:00 Room Air 05/19/18 20:00 98.8 105 24 141/41 (74) 97 05/19/18 16:00 107 05/19/18 16:00 97.5 99 26 133/64 (87) 95 05/19/18 16:00 Room Air Intake and Output 05/19/18 05/20/18 18:59 06:59 Intake Total 450 ml 100 ml Output Total 350 ml 400 ml Balance 100 ml -300 ml Intake Oral 450 ml 100 ml Output Urine Total 350 ml 400 ml # Bowel Movements 5 Laboratory Tests 05/20/18 03:40: White Blood Count 12.6#H, Red Blood Count 4.31L, Hemoglobin 11.2L, Hematocrit 35.5L, Mean Corpuscular Volume 82, Mean Corpuscular Hemoglobin 26.0L, Mean Corpuscular Hemoglobin Concent 31.7L, Red Cell Distribution Width 13.8, Platelet Count 252, Mean Platelet Volume 6.7, Neutrophils (%) (Auto) 78.1H, Lymphocytes (%) (Auto) 14.9L, Monocytes (%) (Auto) 6.7, Eosinophils (%) (Auto) 0.1, Basophils (%) (Auto) 0.3, Sodium Level 145, Potassium Level 3.0L, Chloride Level 106, Carbon Dioxide Level 33H, Anion Gap 6, Blood Urea Nitrogen 22H, Creatinine 0.8, Estimat Glomerular Filtration Rate , Glucose Level 125H, Hemoglobin A1c 6.2H, Calcium Level 9.0, Magnesium Level 1.8, Free Thyroxine 1.43 , Free Triiodothyronine 2.0L, Hepatitis A IgM Antibody [Pending], Hepatitis B Surface Antigen [Pending], Hepatitis B Core IgM Antibody [Pending], Hepatitis C Antibody [Pending] Height (Feet): 5 Height (Inches): 7.00 Weight (Pounds): 115 Objective Thin AA man NCAT supple Chest scattered ronchi RR abd soft no edema OBS Basilio Kirkpatrick MD May 20, 2018 15:54
[2018-05-20 16:00] VITALS: BP 133/80
[2018-05-20 16:36] LABS: APPEARANCE,URINE CLOUDY; BILIRUBIN, URINE NEGATIVE (NEGATIVE); COLOR,URINE PALE YELLOW; GLUCOSE, URINE (UA) NEGATIVE (NEGATIVE); KETONES,URINE 1+ (NEGATIVE); LEUKOCYTE ESTERASE ,URINE NEGATIVE (NEGATIVE); NITRITE,URINE POSITIVE (NEGATIVE); PH,URINE 8 (4.5-8.0); PROTEIN,URINE 1+ (NEGATIVE); UROBILINOGEN,URINE NORMAL MG/DL (0.0-1.0)
--- NOTE | 2018-05-20 17:19 | Cardiac Electrophysiology PN ---
Subjective Subjective [id number] Objective Last 24 Hour Vital Signs Date Time Temp Pulse Resp B/P (MAP) Pulse Ox O2 Delivery O2 Flow Rate FiO2 05/20/18 16:00 98.0 73 20 133/80 (97) 95 05/20/18 12:00 97.3 95 18 124/63 (83) 97 05/20/18 08:00 Room Air 05/20/18 08:00 98.5 88 19 129/68 (88) 95 05/20/18 04:00 98.2 87 20 145/59 (87) 97 05/20/18 04:00 76 05/20/18 04:00 Room Air 05/20/18 00:00 Room Air 05/20/18 00:00 75 05/20/18 00:00 98.4 84 16 127/59 (81) 96 05/19/18 20:59 91 05/19/18 20:00 Room Air 05/19/18 20:00 98.8 105 24 141/41 (74) 97 Intake and Output 05/19/18 05/20/18 18:59 06:59 Intake Total 450 ml 100 ml Output Total 350 ml 400 ml Balance 100 ml -300 ml Intake Oral 450 ml 100 ml Output Urine Total 350 ml 400 ml # Bowel Movements 5 Laboratory Tests Test 05/20/18 03:40 05/20/18 13:59 White Blood Count 12.6 K/UL (4.8-10.8) #H Red Blood Count 4.31 M/UL (4.70-6.10) L Hemoglobin 11.2 G/DL (14.2-18.0) L Hematocrit 35.5 % (42.0-52.0) L Mean Corpuscular Volume 82 FL (80-99) Mean Corpuscular Hemoglobin 26.0 PG (27.0-31.0) L Mean Corpuscular Hemoglobin Concent 31.7 G/DL (32.0-36.0) L Red Cell Distribution Width 13.8 % (11.6-14.8) Platelet Count 252 K/UL (150-450) Mean Platelet Volume 6.7 FL (6.5-10.1) Neutrophils (%) (Auto) 78.1 % (45.0-75.0) H Lymphocytes (%) (Auto) 14.9 % (20.0-45.0) L Monocytes (%) (Auto) 6.7 % (1.0-10.0) Eosinophils (%) (Auto) 0.1 % (0.0-3.0) Basophils (%) (Auto) 0.3 % (0.0-2.0) Sodium Level 145 MMOL/L (136-145) Potassium Level 3.0 MMOL/L (3.5-5.1) L Chloride Level 106 MMOL/L (98-107) Carbon Dioxide Level 33 MMOL/L (21-32) H Anion Gap 6 mmol/L (5-15) Blood Urea Nitrogen 22 mg/dL (7-18) H Creatinine 0.8 MG/DL (0.55-1.30) Estimat Glomerular Filtration Rate mL/min (>60) Glucose Level 125 MG/DL (74-106) H Hemoglobin A1c 6.2 % (4.3-6.0) H Calcium Level 9.0 MG/DL (8.5-10.1) Magnesium Level 1.8 MG/DL (1.8-2.4) Free Thyroxine 1.43 NG/DL (0.76-1.46) Free Triiodothyronine 2.0 pg/mL (2.3-4.2) L Hepatitis A IgM Antibody Pending Hepatitis B Surface Antigen Pending Hepatitis B Core IgM Antibody Pending Hepatitis C Antibody Pending Urine Color Pale yellow Urine Appearance Cloudy Urine pH 8 (4.5-8.0) Urine Specific [place] 1.010 (1.005-1.035) Urine Protein 1+ (NEGATIVE) H Urine Glucose (UA) Negative (NEGATIVE) Urine Ketones 1+ (NEGATIVE) H Urine Blood 5+ (NEGATIVE) H Urine Nitrite Positive (NEGATIVE) H Urine Bilirubin Negative (NEGATIVE) Urine Urobilinogen Normal MG/DL (0.0-1.0) Urine Leukocyte Esterase Negative (NEGATIVE) Urine RBC 10-15 /HPF (0 - 0) H Urine WBC 0-2 /HPF (0 - 0) Urine Squamous Epithelial Cells Occasional /LPF Urine Calcium Phosphate Crystals Many /LPF (NONE) Urine Triple Phosphate Crystals Moderate /LPF (NONE) H Urine Bacteria Many /HPF (NONE) H Microbiology Date/Time Source Procedure Growth Status 05/18/18 15:56 Blood Blood Culture - Preliminary NO GROWTH AFTER 24 HOURS Resulted 05/18/18 15:50 Blood Blood Culture - Preliminary NO GROWTH AFTER 24 HOURS Resulted 05/18/18 15:58 Nasal Nares Influenza Types A,B Antigen (ALEJANDRO) - Final Complete Ang Hickman MD May 20, 2018 17:19
[2018-05-20 20:00] VITALS: BP 146/62
[2018-05-20] MEDS: Albuterol/Ipratropium 3ml neb HHN PRN (23:56)
[2018-05-21] VITALS: BP 159/66
[2018-05-21 04:00] VITALS: BP 144/94
[2018-05-21] MEDS ORDERED: Levothyroxine 25mcg tab ORAL SCH (06:30)
[2018-05-21] MEDS: Levothyroxine 25mcg tab ORAL SCH (06:44)
[2018-05-21 08:00] VITALS: BP 162/73
[2018-05-21] MEDS: Lisinopril 20mg tab ORAL SCH (08:28)
[2018-05-21 08:58] LABS: ANION GAP 6 mmol/L (5-15); BLOOD UREA NITROGEN 7 mg/dL (7-18); CALCIUM 8.9 MG/DL (8.5-10.1); CARBON DIOXIDE 32 MMOL/L (21-32); CHLORIDE 103 MMOL/L (98-107); CREATININE 0.6 MG/DL (0.55-1.30); POTASSIUM 3.4 MMOL/L (3.5-5.1); SODIUM 141 MMOL/L (136-145)
[2018-05-21 09:11] LABS: BASOPHILS % (AUTO) 0.9 % (0.0-2.0); EOSINOPHILS % (AUTO) 0.9 % (0.0-3.0); HEMOGLOBIN 11.6 G/DL (14.2-18.0); LYMPHOCYTES % (AUTO) 19.4 % (20.0-45.0); MEAN CORPUSCULAR VOLUME 83 FL (80-99); NEUTROPHILS % (AUTO) 68.7 % (45.0-75.0); PLATELET COUNT 210 K/UL (150-450); RED BLOOD COUNT 4.46 M/UL (4.70-6.10); RED CELL DISTRIBUTION WIDTH 13.8 % (11.6-14.8); WHITE BLOOD COUNT 8.2 K/UL (4.8-10.8)
--- NOTE | 2018-05-21 11:34 | Diagnostic Imaging Report ---
Indication: Shortness of breath Technique: One view of the chest Comparison: 04/19/2018 Findings: There is elevation of left hemidiaphragm. Lungs are hyperinflated, and there is hyperlucency of the left upper lobe The lungs pleural spaces are clear. The aorta is elongated tortuous and calcified. The heart size is normal. Findings are unchanged Impression: No acute process COPD changes, also previously reported
--- NOTE | 2018-05-21 13:06 | Diagnostic Imaging Report ---
Indication: Severe altered mental status Technique: sagittal T1 fast spin echo, axial T1 FLAIR, axial T2 FLAIR, axial T2 FS PROPELLER, axial T2* GRE, axial diffusion weighted images. ADC and exponential ADC maps generated Comparison: none Findings: Numerous sequences are degraded by motion artifact, limiting assessment No abnormal areas of restricted diffusion to suggest acute infarction. No acute hemorrhage or edema. No mass effect nor midline shift. There is marked age-related enlargement of the ventricles and extra axial CSF spaces. There is periventricular deep white matter high T2 signal which is considerable. Multiple old bilateral basal ganglia lacunar infarcts are demonstrated. The vascular flow voids are preserved.. There is evidence of prior cataract surgery on the left. There is evidence of sphenoid sinus disease.. Impression: Limited exam, as described Chronic and age-related changes. Multiple old lacunar infarcts Negative for acute intracranial bleed, mass effect, or infarct
[2018-05-21 13:31] VITALS: BP 152/75
--- NOTE | 2018-05-21 14:05 | Cardiac Electrophysiology PN ---
Assessment/Plan Assessment/Plan 1. HTN urgency On Lisinopril 40 2. Hypokalemia, replace 3. Acute metabolic encephalopathy, possibly due to dehydration and uncontrolled HTN 4. Hhx of multiple strokes 5. Leukocytosis 6. COPD 7. Dehydration 8. Hx of prostate Ca 9. Sclerotic focus in the left ilium, r/o bone mets Subjective Subjective Comfortable in NAD. Feeder at bedside. Objective Last 24 Hour Vital Signs Date Time Temp Pulse Resp B/P (MAP) Pulse Ox O2 Delivery O2 Flow Rate FiO2 05/21/18 13:31 97.2 85 17 152/75 (100) 98 05/21/18 09:00 Room Air 05/21/18 08:28 162/73 05/21/18 08:00 98.0 77 18 162/73 (102) 98 05/21/18 04:00 98.1 102 20 144/94 (111) 98 05/21/18 00:05 83 18 99 Room Air 21 05/21/18 00:00 97.5 90 18 159/66 (97) 98 05/20/18 23:56 86 18 98 Room Air 21 05/20/18 21:28 Room Air 05/20/18 20:00 96.9 83 17 146/62 (90) 97 05/20/18 16:00 98.0 73 20 133/80 (97) 95 Intake and Output 05/20/18 05/21/18 18:59 06:59 Intake Total 240 ml 180 ml Output Total 200 ml 400 ml Balance 40 ml -220 ml Intake Oral 240 ml 180 ml Output Urine Total 200 ml 400 ml # Bowel Movements 1 Laboratory Tests Test 05/21/18 07:11 White Blood Count 8.2 K/UL (4.8-10.8) Red Blood Count 4.46 M/UL (4.70-6.10) L Hemoglobin 11.6 G/DL (14.2-18.0) L Hematocrit 37.0 % (42.0-52.0) L Mean Corpuscular Volume 83 FL (80-99) Mean Corpuscular Hemoglobin 26.1 PG (27.0-31.0) L Mean Corpuscular Hemoglobin Concent 31.5 G/DL (32.0-36.0) L Red Cell Distribution Width 13.8 % (11.6-14.8) Platelet Count 210 K/UL (150-450) Mean Platelet Volume 6.9 FL (6.5-10.1) Neutrophils (%) (Auto) 68.7 % (45.0-75.0) Lymphocytes (%) (Auto) 19.4 % (20.0-45.0) L Monocytes (%) (Auto) 10.0 % (1.0-10.0) Eosinophils (%) (Auto) 0.9 % (0.0-3.0) Basophils (%) (Auto) 0.9 % (0.0-2.0) Sodium Level 141 MMOL/L (136-145) Potassium Level 3.4 MMOL/L (3.5-5.1) L Chloride Level 103 MMOL/L (98-107) Carbon Dioxide Level 32 MMOL/L (21-32) Anion Gap 6 mmol/L (5-15) Blood Urea Nitrogen 7 mg/dL (7-18) Creatinine 0.6 MG/DL (0.55-1.30) Estimat Glomerular Filtration Rate mL/min (>60) Glucose Level 122 MG/DL (74-106) H Calcium Level 8.9 MG/DL (8.5-10.1) Pro-B-Type Natriuretic Peptide 441 pg/mL (0-125) H Microbiology Date/Time Source Procedure Growth Status 05/18/18 15:56 Blood Blood Culture - Preliminary NO GROWTH AFTER 48 HOURS Resulted 05/18/18 15:50 Blood Blood Culture - Preliminary NO GROWTH AFTER 48 HOURS Resulted 05/18/18 15:58 Nasal Nares Influenza Types A,B Antigen (ALEJANDRO) - Final Complete 05/20/18 13:59 Urine,Clean Catch Urine Culture - Preliminary Gram Negative Bacillus 1 Resulted Objective HEENT: No JVE LUNGS: Clear CVS: RRR, No G/R/M ABDOMEN: soft EXT No edema Ang Hickman MD May 21, 2018 14:05
--- NOTE | 2018-05-21 14:18 | Diagnostic Imaging Report ---
Indication: Pain, metastases Technique: Limited images of the axial and appendicular skeleton Comparison: Chest compared to earlier the same day. No other comparison exams. Findings: The bones are osteoporotic. Arterial vascular calcifications are noted. Degenerative changes of the lumbosacral junction are noted. No definite osteolytic or osteoblastic process demonstrated. Impression: Osteoporosis Lumbosacral spondylosis No plain radiographic evidence of osseous metastases or myelomatous deposits
--- NOTE | 2018-05-21 14:40 | General Progress Note ---
Assessment/Plan Problem List: (1) Malnutrition ICD Codes: E46 - Unspecified protein-calorie malnutrition SNOMED: 12250061 (2) Diabetes ICD Codes: E11.9 - Type 2 diabetes mellitus without complications SNOMED: 87486643 (3) Anemia ICD Codes: D64.9 - Anemia, unspecified SNOMED: 405403739 (4) HTN (hypertension) ICD Codes: I10 - Essential (primary) hypertension SNOMED: 90853745 (5) Altered level of consciousness ICD Codes: R40.4 - Transient alteration of awareness SNOMED: 2061025 (6) COPD exacerbation ICD Codes: J44.1 - Chronic obstructive pulmonary disease with (acute) exacerbation SNOMED: 055218307 (7) Dehydration ICD Codes: E86.0 - Dehydration SNOMED: 98599011 (8) COPD (chronic obstructive pulmonary disease) ICD Codes: J44.9 - Chronic obstructive pulmonary disease, unspecified SNOMED: 93499279 (9) Sepsis ICD Codes: A41.9 - Sepsis, unspecified organism SNOMED: 22394403 Status: unchanged Assessment/Plan o2 pulm tx pt bp bs control cbc bmp am id eval dc plan snf Subjective Constitutional: Reports: weakness Allergies: Coded Allergies: PENICILLINS (Verified Allergy, Severe, Hives, 04/19/18) All Systems: reviewed and negative except above Subjective o2nc sl anxious Objective Last 24 Hour Vital Signs Date Time Temp Pulse Resp B/P (MAP) Pulse Ox O2 Delivery O2 Flow Rate FiO2 05/21/18 13:31 97.2 85 17 152/75 (100) 98 05/21/18 09:00 Room Air 05/21/18 08:28 162/73 05/21/18 08:00 98.0 77 18 162/73 (102) 98 05/21/18 04:00 98.1 102 20 144/94 (111) 98 05/21/18 00:05 83 18 99 Room Air 21 05/21/18 00:00 97.5 90 18 159/66 (97) 98 05/20/18 23:56 86 18 98 Room Air 21 05/20/18 21:28 Room Air 05/20/18 20:00 96.9 83 17 146/62 (90) 97 05/20/18 16:00 98.0 73 20 133/80 (97) 95 Intake and Output 05/20/18 05/21/18 19:00 07:00 Intake Total 240 ml 180 ml Output Total 200 ml 400 ml Balance 40 ml -220 ml Intake Oral 240 ml 180 ml Output Urine Total 200 ml 400 ml # Bowel Movements 1 Laboratory Tests 05/21/18 07:11: White Blood Count 8.2, Red Blood Count 4.46L, Hemoglobin 11.6L, Hematocrit 37.0L , Mean Corpuscular Volume 83, Mean Corpuscular Hemoglobin 26.1L, Mean Corpuscular Hemoglobin Concent 31.5L, Red Cell Distribution Width 13.8, Platelet Count 210, Mean Platelet Volume 6.9, Neutrophils (%) (Auto) 68.7, Lymphocytes (%) (Auto) 19.4L, Monocytes (%) (Auto) 10.0, Eosinophils (%) (Auto) 0.9, Basophils (%) (Auto) 0.9, Sodium Level 141, Potassium Level 3.4L, Chloride Level 103, Carbon Dioxide Level 32, Anion Gap 6, Blood Urea Nitrogen 7, Creatinine 0.6, Estimat Glomerular Filtration Rate , Glucose Level 122H, Calcium Level 8.9, Pro-B-Type Natriuretic Peptide 441H Height (Feet): 5 Height (Inches): 7.00 Weight (Pounds): 115 General Appearance: lethargic EENT: normal ENT inspection Neck: normal alignment Cardiovascular: normal peripheral pulses, normal rate, regular rhythm Respiratory/Chest: chest wall non-tender, lungs clear, normal breath sounds Abdomen: normal bowel sounds, non tender, soft Extremities: normal inspection Edema: no edema noted Arm (L), no edema noted Arm (R), no edema noted Leg (L), no edema noted Leg (R), no edema noted Pedal (L), no edema noted Pedal (R), no edema noted Generalized Neurologic: motor weakness Skin: normal pigmentation, warm/dry Julien Chery DO May 21, 2018 14:40
--- NOTE | 2018-05-21 15:44 | Pulmonology Progress Note ---
Assessment/Plan Problems: (1) COPD (chronic obstructive pulmonary disease) (2) Impaired mobility and ADLs (3) Prostate CA (4) Anemia (5) Diabetes (6) Malnutrition (7) HTN (hypertension) Assessment/Plan check PSA and CEA rule out metastasis symptomatic treatment anemia w/u sliding scale monitor BP Subjective ROS Limited/Unobtainable: No Constitutional: Reports: no symptoms HEENT: Repors: no symptoms Respiratory: Reports: no symptoms Allergies: Coded Allergies: PENICILLINS (Verified Allergy, Severe, Hives, 04/19/18) Objective Last 24 Hour Vital Signs Date Time Temp Pulse Resp B/P (MAP) Pulse Ox O2 Delivery O2 Flow Rate FiO2 05/21/18 13:31 97.2 85 17 152/75 (100) 98 05/21/18 09:00 Room Air 05/21/18 08:28 162/73 05/21/18 08:00 98.0 77 18 162/73 (102) 98 05/21/18 04:00 98.1 102 20 144/94 (111) 98 05/21/18 00:05 83 18 99 Room Air 21 05/21/18 00:00 97.5 90 18 159/66 (97) 98 05/20/18 23:56 86 18 98 Room Air 21 05/20/18 21:28 Room Air 05/20/18 20:00 96.9 83 17 146/62 (90) 97 05/20/18 16:00 98.0 73 20 133/80 (97) 95 Intake and Output 05/20/18 05/21/18 18:59 06:59 Intake Total 240 ml 180 ml Output Total 200 ml 400 ml Balance 40 ml -220 ml Intake Oral 240 ml 180 ml Output Urine Total 200 ml 400 ml # Bowel Movements 1 General Appearance: cachetic HEENT: normocephalic, atraumatic Respiratory/Chest: chest wall non-tender, normal breath sounds Cardiovascular: normal peripheral pulses, normal rate Abdomen: normal bowel sounds, soft, non tender Extremities: no cyanosis, no clubbing Skin: no lesions Microbiology Date/Time Source Procedure Growth Status 05/18/18 15:56 Blood Blood Culture - Preliminary Resulted 05/18/18 15:50 Blood Blood Culture - Preliminary NO GROWTH AFTER 48 HOURS Resulted 05/18/18 15:58 Nasal Nares Influenza Types A,B Antigen (ALEJANDRO) - Final Complete 05/20/18 13:59 Urine,Clean Catch Urine Culture - Preliminary Gram Negative Bacillus 1 Resulted Laboratory Tests 05/21/18 07:11: White Blood Count 8.2, Red Blood Count 4.46L, Hemoglobin 11.6L, Hematocrit 37.0L , Mean Corpuscular Volume 83, Mean Corpuscular Hemoglobin 26.1L, Mean Corpuscular Hemoglobin Concent 31.5L, Red Cell Distribution Width 13.8, Platelet Count 210, Mean Platelet Volume 6.9, Neutrophils (%) (Auto) 68.7, Lymphocytes (%) (Auto) 19.4L, Monocytes (%) (Auto) 10.0, Eosinophils (%) (Auto) 0.9, Basophils (%) (Auto) 0.9, Sodium Level 141, Potassium Level 3.4L, Chloride Level 103, Carbon Dioxide Level 32, Anion Gap 6, Blood Urea Nitrogen 7, Creatinine 0.6, Estimat Glomerular Filtration Rate , Glucose Level 122H, Calcium Level 8.9, Pro-B-Type Natriuretic Peptide 441H Current Medications Medications (Trade) Dose Ordered Sig/Rafa Route PRN Reason Start Time Stop Time Status Last Admin Dose Admin Acetaminophen (Tylenol) 650 mg Q4H PRN ORAL fever 05/20/18 08:54 06/17/18 08:53 Al Hydroxide/Mg Hydroxide (Mylanta II) 30 ml Q6H PRN ORAL dyspepsia 05/20/18 08:54 06/17/18 08:53 Albuterol/ Ipratropium (Albuterol/ Ipratropium) 3 ml Q4H PRN HHN Shortness of Breath 05/20/18 08:54 05/24/18 08:53 05/20/18 23:56 Clonidine HCl (Catapres Tab) 0.1 mg Q2H PRN ORAL For High Blood Pressure 05/20/18 17:30 06/19/18 17:29 Dextrose (Dextrose 50%) 25 ml Q30M PRN IV Hypoglycemia 05/20/18 09:00 06/19/18 08:55 Dextrose (Dextrose 50%) 50 ml Q30M PRN IV hypoglycemia 05/20/18 09:00 06/19/18 08:59 Levothyroxine Sodium (Synthroid) 25 mcg DAILY@0630 ORAL 05/21/18 06:30 06/20/18 06:29 05/21/18 06:44 Lisinopril (Prinivil) 40 mg DAILY ORAL 05/21/18 09:00 06/20/18 08:59 05/21/18 08:28 Lorazepam (Ativan 2mg/ml 1ml) 0.5 mg Q4H PRN IV For Anxiety 05/20/18 08:54 05/25/18 08:53 05/21/18 09:57 Morphine Sulfate (Morphine Sulfate) 2 mg Q4H PRN IVP pain 05/20/18 08:54 05/25/18 08:53 Ondansetron HCl (Zofran) 4 mg Q6H PRN IVP Nausea & Vomiting 05/20/18 08:55 06/17/18 08:54 Polyethylene Glycol (Miralax) 17 gm HSPRN PRN ORAL Constipation 05/20/18 08:55 06/17/18 08:54 Zolpidem Tartrate (Ambien) 5 mg HSPRN PRN ORAL Insomnia 05/20/18 08:55 05/25/18 08:54 Bridger Robin MD May 21, 2018 15:44
[2018-05-21 16:00] VITALS: BP 153/75
[2018-05-21] MEDS ORDERED: Vancomycin 1gm/D5W 275ml IVPB ONE ×2 (17:30)
[2018-05-21 20:00] VITALS: BP 147/79
[2018-05-21] MEDS: Albuterol/Ipratropium 3ml neb HHN PRN (22:32)
[2018-05-22] VITALS: BP 127/75
[2018-05-22 04:00] VITALS: BP 153/67
[2018-05-22] MEDS: Levothyroxine 25mcg tab ORAL SCH (06:23)
[2018-05-22 07:16] LABS: BASOPHILS % (AUTO) 1.5 % (0.0-2.0); EOSINOPHILS % (AUTO) 0.8 % (0.0-3.0); HEMATOCRIT 35.5 % (42.0-52.0); HEMOGLOBIN 11.1 G/DL (14.2-18.0); LYMPHOCYTES % (AUTO) 20.6 % (20.0-45.0); MEAN CORPUSCULAR VOLUME 83 FL (80-99); NEUTROPHILS % (AUTO) 71.1 % (45.0-75.0); PLATELET COUNT 219 K/UL (150-450); RED CELL DISTRIBUTION WIDTH 13.5 % (11.6-14.8); WHITE BLOOD COUNT 10.4 K/UL (4.8-10.8)
[2018-05-22 07:45] LABS: ANION GAP 7 mmol/L (5-15); BLOOD UREA NITROGEN 7 mg/dL (7-18); CALCIUM 8.9 MG/DL (8.5-10.1); CARBON DIOXIDE 30 MMOL/L (21-32); CHLORIDE 102 MMOL/L (98-107); CREATININE 0.7 MG/DL (0.55-1.30); SODIUM 139 MMOL/L (136-145)
[2018-05-22 08:00] VITALS: BP 136/71
[2018-05-22] MEDS: Lisinopril 20mg tab ORAL SCH (09:23)
--- NOTE | 2018-05-22 10:41 | Consultation ---
History of Present Illness General Date patient seen: May 22, 2018 Chief Complaint: Altered Level of Consciousness Referring physician: dr Stanton Reason for Consultation: COPD, possible exacerbation Present Illness HPI 87 y/o M wtih hx of HTN, COPD/asthma, multiple CVA, prostate CA presents to ED on 05/18 after being found lying down on the ground. Upon admission, BP was 190/ 96 and tachycardic to 102 ID is consulted for leukocytosis and bactermia Allergies: Coded Allergies: PENICILLINS (Verified Allergy, Severe, Hives, 04/19/18) Medication History Scheduled Albuterol Sulfate* (Albuterol Sulfate Mdi*), 2 PUFF INH Q4H, (Reported) Diazepam* (Diazepam*), 10 MG ORAL BEDTIME, (Reported) Lisinopril (Lisinopril*), 40 MG ORAL DAILY, (Reported) Nifedipine* (Nifedipine Er*), 90 MG ORAL DAILY, (Reported) Patient History Healthcare decision maker N Resuscitation status Full Code Advanced Directive on File Patient History Narrative Pmhx: as above Shx: reviewed Fhx: non contributory Review of Systems All Other Systems: negative except mentioned in HPI Physical Exam Physical Exam Narrative General Appearance: alert , confused, garbled speech Lines, tubes and drains: peripheral HEENT: normocephalic, atraumatic Neck: supple Respiratory/Chest: lungs clear - with moderate air exchange Cardiovascular/Chest: normal peripheral pulses, no JVD, tachycardia - ST with PAC Abdomen: normal bowel sounds, soft Skin Exam: warm/dry Neurologic: abnormal gait, awake, confused, garbled speech Last 24 Hour Vital Signs Date Time Temp Pulse Resp B/P (MAP) Pulse Ox O2 Delivery O2 Flow Rate FiO2 05/22/18 09:23 136/71 05/22/18 08:00 97.9 83 18 136/71 (92) 99 05/22/18 04:00 99.1 63 16 153/67 (95) 95 05/22/18 00:00 99.7 91 16 127/75 (92) 98 05/21/18 22:43 88 18 98 Room Air 21 05/21/18 22:32 91 18 97 Room Air 21 05/21/18 21:00 Room Air 05/21/18 20:15 86 20 Room Air 21 05/21/18 20:00 99.3 90 18 147/79 (101) 98 05/21/18 16:00 97.5 92 20 153/75 (101) 100 05/21/18 13:31 97.2 85 17 152/75 (100) 98 Intake and Output 05/21/18 05/22/18 19:00 07:00 Intake Total 595.000 ml Output Total 800 ml 350 ml Balance -205.000 ml -350 ml Intake Oral 120 ml IV Total 475.000 ml Output Urine Total 800 ml 350 ml Laboratory Tests Test 05/22/18 06:15 White Blood Count 10.4 K/UL (4.8-10.8) Red Blood Count 4.30 M/UL (4.70-6.10) L Hemoglobin 11.1 G/DL (14.2-18.0) L Hematocrit 35.5 % (42.0-52.0) L Mean Corpuscular Volume 83 FL (80-99) Mean Corpuscular Hemoglobin 25.8 PG (27.0-31.0) L Mean Corpuscular Hemoglobin Concent 31.2 G/DL (32.0-36.0) L Red Cell Distribution Width 13.5 % (11.6-14.8) Platelet Count 219 K/UL (150-450) Mean Platelet Volume 6.8 FL (6.5-10.1) Neutrophils (%) (Auto) 71.1 % (45.0-75.0) Lymphocytes (%) (Auto) 20.6 % (20.0-45.0) Monocytes (%) (Auto) 6.0 % (1.0-10.0) Eosinophils (%) (Auto) 0.8 % (0.0-3.0) Basophils (%) (Auto) 1.5 % (0.0-2.0) Sodium Level 139 MMOL/L (136-145) Potassium Level 4.0 MMOL/L (3.5-5.1) Chloride Level 102 MMOL/L (98-107) Carbon Dioxide Level 30 MMOL/L (21-32) Anion Gap 7 mmol/L (5-15) Blood Urea Nitrogen 7 mg/dL (7-18) Creatinine 0.7 MG/DL (0.55-1.30) Estimat Glomerular Filtration Rate mL/min (>60) Glucose Level 118 MG/DL (74-106) H Calcium Level 8.9 MG/DL (8.5-10.1) Height (Feet): 5 Height (Inches): 7.00 Weight (Pounds): 115 Medications Current Medications Medications (Trade) Dose Ordered Sig/Rafa Route PRN Reason Start Time Stop Time Status Last Admin Dose Admin Acetaminophen (Tylenol) 650 mg Q4H PRN ORAL fever 05/20/18 08:54 06/17/18 08:53 Al Hydroxide/Mg Hydroxide (Mylanta II) 30 ml Q6H PRN ORAL dyspepsia 05/20/18 08:54 06/17/18 08:53 Albuterol/ Ipratropium (Albuterol/ Ipratropium) 3 ml Q4H PRN HHN Shortness of Breath 05/20/18 08:54 05/24/18 08:53 05/21/18 22:32 Clonidine HCl (Catapres Tab) 0.1 mg Q2H PRN ORAL For High Blood Pressure 05/20/18 17:30 06/19/18 17:29 Dextrose (Dextrose 50%) 25 ml Q30M PRN IV Hypoglycemia 05/20/18 09:00 06/19/18 08:55 Dextrose (Dextrose 50%) 50 ml Q30M PRN IV hypoglycemia 05/20/18 09:00 06/19/18 08:59 Levothyroxine Sodium (Synthroid) 25 mcg DAILY@0630 ORAL 05/21/18 06:30 06/20/18 06:29 05/22/18 06:23 Lisinopril (Prinivil) 40 mg DAILY ORAL 05/21/18 09:00 06/20/18 08:59 05/22/18 09:23 Lorazepam (Ativan 2mg/ml 1ml) 0.5 mg Q4H PRN IV For Anxiety 05/20/18 08:54 05/25/18 08:53 05/21/18 09:57 Morphine Sulfate (Morphine Sulfate) 2 mg Q4H PRN IVP pain 05/20/18 08:54 05/25/18 08:53 Ondansetron HCl (Zofran) 4 mg Q6H PRN IVP Nausea & Vomiting 05/20/18 08:55 06/17/18 08:54 Polyethylene Glycol (Miralax) 17 gm HSPRN PRN ORAL Constipation 05/20/18 08:55 06/17/18 08:54 Vancomycin HCl (Vanco rx to dose) 1 ea DAILY PRN MISC Per rx protocol 05/21/18 16:30 06/20/18 16:29 Vancomycin/Sodium Chloride 250 ml @ 166.667 mls/hr Q24H IVPB 05/22/18 17:00 05/27/18 16:59 Zolpidem Tartrate (Ambien) 5 mg HSPRN PRN ORAL Insomnia 05/20/18 08:55 05/25/18 08:54 Assessment/Plan Assessment/Plan Abx: IV Vancomycin 05/21- Assessment: Afebrile Leukocytosis, SP -likely reactive -CXR: no acute disease -CT abd/p: Gallbladder sludge versus stones. Nonspecific ill-defined sclerotic focus in the left ilium measuring 2.6 cm. The nature of this finding is not known but differential includes metastatic disease. Further evaluation is recommended. Moderate arterial vascular disease. Abnormal appearance of the right ilium with increased trabecular markings, nonspecific. Consider possibility of Paget's disease. Old granulomatous disease. Diverticulosis of the colon. No definite diverticulitis. Distended urinary bladder. Prostate hypertrophy. Small bilateral inguinal hernias containing fat. Diphtheroids bacteremia- likely contaminant' -05/18 +1/; 05/21 p x2 Bacteriuria -u/a wbc 0-2, nit +, leuk est neg; ucx GNR Acute encephalopathy -Brain MRI: Limited exam, as described. Chronic and age-related changes. Multiple old lacunar infarcts. Negative for acute intracranial bleed, mass effect, or infarct HTN COPD/asthma multiple CVA prostate CA -bone scan: Osteoporosis. Lumbosacral spondylosis. No plain radiographic evidence of osseous metastases or myelomatous deposits Plan: -Continue empiric IV Vancomycin #2 for now pending repeat Bcx -f/u cx -Monitor CBC/CMP, temperatures -aspiration precautions Thank you for this consultation. Will continue to follow along with you. Discussed with TORSTEN. Lissy Harris M.D. May 22, 2018 10:41
--- NOTE | 2018-05-22 10:56 | Cardiac Electrophysiology PN ---
Assessment/Plan Assessment/Plan 1. HTN urgency On Lisinopril 40 2. Hypokalemia, replaced 3. Acute metabolic encephalopathy, possibly due to dehydration and uncontrolled HTN 4. Hhx of multiple strokes 5. Leukocytosis 6. COPD 7. Dehydration 8. Hx of prostate Ca 9. Sclerotic focus in the left ilium, r/o bone mets Subjective Subjective Comfortable in NAD.More alert. In NAD Objective Last 24 Hour Vital Signs Date Time Temp Pulse Resp B/P (MAP) Pulse Ox O2 Delivery O2 Flow Rate FiO2 05/22/18 09:23 136/71 05/22/18 08:00 97.9 83 18 136/71 (92) 99 05/22/18 04:00 99.1 63 16 153/67 (95) 95 05/22/18 00:00 99.7 91 16 127/75 (92) 98 05/21/18 22:43 88 18 98 Room Air 21 05/21/18 22:32 91 18 97 Room Air 21 05/21/18 21:00 Room Air 05/21/18 20:15 86 20 Room Air 21 05/21/18 20:00 99.3 90 18 147/79 (101) 98 05/21/18 16:00 97.5 92 20 153/75 (101) 100 05/21/18 13:31 97.2 85 17 152/75 (100) 98 Intake and Output 05/21/18 05/22/18 19:00 07:00 Intake Total 595.000 ml Output Total 800 ml 350 ml Balance -205.000 ml -350 ml Intake Oral 120 ml IV Total 475.000 ml Output Urine Total 800 ml 350 ml Laboratory Tests Test 05/22/18 06:15 White Blood Count 10.4 K/UL (4.8-10.8) Red Blood Count 4.30 M/UL (4.70-6.10) L Hemoglobin 11.1 G/DL (14.2-18.0) L Hematocrit 35.5 % (42.0-52.0) L Mean Corpuscular Volume 83 FL (80-99) Mean Corpuscular Hemoglobin 25.8 PG (27.0-31.0) L Mean Corpuscular Hemoglobin Concent 31.2 G/DL (32.0-36.0) L Red Cell Distribution Width 13.5 % (11.6-14.8) Platelet Count 219 K/UL (150-450) Mean Platelet Volume 6.8 FL (6.5-10.1) Neutrophils (%) (Auto) 71.1 % (45.0-75.0) Lymphocytes (%) (Auto) 20.6 % (20.0-45.0) Monocytes (%) (Auto) 6.0 % (1.0-10.0) Eosinophils (%) (Auto) 0.8 % (0.0-3.0) Basophils (%) (Auto) 1.5 % (0.0-2.0) Sodium Level 139 MMOL/L (136-145) Potassium Level 4.0 MMOL/L (3.5-5.1) Chloride Level 102 MMOL/L (98-107) Carbon Dioxide Level 30 MMOL/L (21-32) Anion Gap 7 mmol/L (5-15) Blood Urea Nitrogen 7 mg/dL (7-18) Creatinine 0.7 MG/DL (0.55-1.30) Estimat Glomerular Filtration Rate mL/min (>60) Glucose Level 118 MG/DL (74-106) H Calcium Level 8.9 MG/DL (8.5-10.1) Microbiology Date/Time Source Procedure Growth Status 05/20/18 13:59 Urine,Clean Catch Urine Culture - Preliminary Gram Negative Bacillus 1 YEAST Resulted Objective HEENT: No JVE LUNGS: Clear CVS: RRR, No G/R/M ABDOMEN: soft EXT No edema Ang Hickman MD May 22, 2018 10:56
[2018-05-22 12:00] VITALS: BP_SYST 128; BP_SYST 133; BP_DIAS 71; BP_DIAS 82
--- NOTE | 2018-05-22 13:04 | Pulmonology Progress Note ---
Assessment/Plan Problems: (1) COPD (chronic obstructive pulmonary disease) (2) Impaired mobility and ADLs (3) Prostate CA (4) Anemia (5) Diabetes (6) Malnutrition (7) HTN (hypertension) Assessment/Plan PSA and CEA are normal rule out metastasis symptomatic treatment anemia w/u sliding scale monitor BP Subjective ROS Limited/Unobtainable: No Constitutional: Reports: no symptoms HEENT: Repors: no symptoms Respiratory: Reports: no symptoms Allergies: Coded Allergies: PENICILLINS (Verified Allergy, Severe, Hives, 04/19/18) Objective Last 24 Hour Vital Signs Date Time Temp Pulse Resp B/P (MAP) Pulse Ox O2 Delivery O2 Flow Rate FiO2 05/22/18 09:23 136/71 05/22/18 08:00 97.9 83 18 136/71 (92) 99 05/22/18 04:00 99.1 63 16 153/67 (95) 95 05/22/18 00:00 99.7 91 16 127/75 (92) 98 05/21/18 22:43 88 18 98 Room Air 21 05/21/18 22:32 91 18 97 Room Air 21 05/21/18 21:00 Room Air 05/21/18 20:15 86 20 Room Air 21 05/21/18 20:00 99.3 90 18 147/79 (101) 98 05/21/18 16:00 97.5 92 20 153/75 (101) 100 05/21/18 13:31 97.2 85 17 152/75 (100) 98 Intake and Output 05/21/18 05/22/18 19:00 07:00 Intake Total 595.000 ml Output Total 800 ml 350 ml Balance -205.000 ml -350 ml Intake Oral 120 ml IV Total 475.000 ml Output Urine Total 800 ml 350 ml General Appearance: WD/WN HEENT: normocephalic, anicteric Respiratory/Chest: chest wall non-tender, lungs clear Cardiovascular: normal peripheral pulses, normal rate Abdomen: normal bowel sounds, no organomegaly Extremities: no cyanosis Skin: no lesions Microbiology Date/Time Source Procedure Growth Status 05/20/18 13:59 Urine,Clean Catch Urine Culture - Preliminary Gram Negative Bacillus 1 YEAST Resulted Laboratory Tests 05/22/18 06:15: White Blood Count 10.4, Red Blood Count 4.30L, Hemoglobin 11.1L, Hematocrit 35.5L, Mean Corpuscular Volume 83, Mean Corpuscular Hemoglobin 25.8L, Mean Corpuscular Hemoglobin Concent 31.2L, Red Cell Distribution Width 13.5, Platelet Count 219, Mean Platelet Volume 6.8, Neutrophils (%) (Auto) 71.1, Lymphocytes (%) (Auto) 20.6, Monocytes (%) (Auto) 6.0, Eosinophils (%) (Auto) 0.8, Basophils (%) (Auto) 1.5, Sodium Level 139, Potassium Level 4.0, Chloride Level 102, Carbon Dioxide Level 30, Anion Gap 7, Blood Urea Nitrogen 7, Creatinine 0.7, Estimat Glomerular Filtration Rate , Glucose Level 118H, Calcium Level 8.9 Current Medications Medications (Trade) Dose Ordered Sig/Rafa Route PRN Reason Start Time Stop Time Status Last Admin Dose Admin Acetaminophen (Tylenol) 650 mg Q4H PRN ORAL fever 05/20/18 08:54 06/17/18 08:53 Al Hydroxide/Mg Hydroxide (Mylanta II) 30 ml Q6H PRN ORAL dyspepsia 05/20/18 08:54 06/17/18 08:53 Albuterol/ Ipratropium (Albuterol/ Ipratropium) 3 ml Q4H PRN HHN Shortness of Breath 05/20/18 08:54 05/24/18 08:53 05/21/18 22:32 Clonidine HCl (Catapres Tab) 0.1 mg Q2H PRN ORAL For High Blood Pressure 05/20/18 17:30 06/19/18 17:29 Dextrose (Dextrose 50%) 25 ml Q30M PRN IV Hypoglycemia 05/20/18 09:00 06/19/18 08:55 Dextrose (Dextrose 50%) 50 ml Q30M PRN IV hypoglycemia 05/20/18 09:00 06/19/18 08:59 Levothyroxine Sodium (Synthroid) 25 mcg DAILY@0630 ORAL 05/21/18 06:30 06/20/18 06:29 05/22/18 06:23 Lisinopril (Prinivil) 40 mg DAILY ORAL 05/21/18 09:00 06/20/18 08:59 05/22/18 09:23 Lorazepam (Ativan 2mg/ml 1ml) 0.5 mg Q4H PRN IV For Anxiety 05/20/18 08:54 05/25/18 08:53 05/21/18 09:57 Morphine Sulfate (Morphine Sulfate) 2 mg Q4H PRN IVP pain 05/20/18 08:54 05/25/18 08:53 Ondansetron HCl (Zofran) 4 mg Q6H PRN IVP Nausea & Vomiting 05/20/18 08:55 06/17/18 08:54 Polyethylene Glycol (Miralax) 17 gm HSPRN PRN ORAL Constipation 05/20/18 08:55 06/17/18 08:54 Vancomycin HCl (Vanco rx to dose) 1 ea DAILY PRN MISC Per rx protocol 05/21/18 16:30 06/20/18 16:29 Vancomycin/Sodium Chloride 250 ml @ 166.667 mls/hr Q24H IVPB 05/22/18 17:00 05/27/18 16:59 Zolpidem Tartrate (Ambien) 5 mg HSPRN PRN ORAL Insomnia 05/20/18 08:55 05/25/18 08:54 Bridger Robin MD May 22, 2018 13:04
--- NOTE | 2018-05-22 13:46 | General Progress Note ---
Assessment/Plan Problem List: (1) Malnutrition ICD Codes: E46 - Unspecified protein-calorie malnutrition SNOMED: 20609275 (2) Diabetes ICD Codes: E11.9 - Type 2 diabetes mellitus without complications SNOMED: 42023896 (3) Anemia ICD Codes: D64.9 - Anemia, unspecified SNOMED: 950148115 (4) HTN (hypertension) ICD Codes: I10 - Essential (primary) hypertension SNOMED: 13745091 (5) Altered level of consciousness ICD Codes: R40.4 - Transient alteration of awareness SNOMED: 5269948 (6) COPD exacerbation ICD Codes: J44.1 - Chronic obstructive pulmonary disease with (acute) exacerbation SNOMED: 021944518 (7) Dehydration ICD Codes: E86.0 - Dehydration SNOMED: 74429702 (8) COPD (chronic obstructive pulmonary disease) ICD Codes: J44.9 - Chronic obstructive pulmonary disease, unspecified SNOMED: 82230783 (9) Sepsis ICD Codes: A41.9 - Sepsis, unspecified organism SNOMED: 37688355 Status: unchanged Assessment/Plan o2 pulm tx pt bp bs control cbc bmp am id eval aru eval Subjective Constitutional: Reports: weakness Respiratory: Reports: shortness of breath Allergies: Coded Allergies: PENICILLINS (Verified Allergy, Severe, Hives, 04/19/18) All Systems: reviewed and negative except above Subjective o2nc sl anxious Objective Last 24 Hour Vital Signs Date Time Temp Pulse Resp B/P (MAP) Pulse Ox O2 Delivery O2 Flow Rate FiO2 05/22/18 12:00 98.6 81 16 133/71 (91) 97 05/22/18 09:23 136/71 05/22/18 09:00 Room Air 05/22/18 08:00 97.9 83 18 136/71 (92) 99 05/22/18 04:00 99.1 63 16 153/67 (95) 95 05/22/18 00:00 99.7 91 16 127/75 (92) 98 05/21/18 22:43 88 18 98 Room Air 21 05/21/18 22:32 91 18 97 Room Air 21 05/21/18 21:00 Room Air 05/21/18 20:15 86 20 Room Air 21 05/21/18 20:00 99.3 90 18 147/79 (101) 98 05/21/18 16:00 97.5 92 20 153/75 (101) 100 Intake and Output 05/21/18 05/22/18 19:00 07:00 Intake Total 595.000 ml Output Total 800 ml 350 ml Balance -205.000 ml -350 ml Intake Oral 120 ml IV Total 475.000 ml Output Urine Total 800 ml 350 ml Laboratory Tests 05/22/18 06:15: White Blood Count 10.4, Red Blood Count 4.30L, Hemoglobin 11.1L, Hematocrit 35.5L, Mean Corpuscular Volume 83, Mean Corpuscular Hemoglobin 25.8L, Mean Corpuscular Hemoglobin Concent 31.2L, Red Cell Distribution Width 13.5, Platelet Count 219, Mean Platelet Volume 6.8, Neutrophils (%) (Auto) 71.1, Lymphocytes (%) (Auto) 20.6, Monocytes (%) (Auto) 6.0, Eosinophils (%) (Auto) 0.8, Basophils (%) (Auto) 1.5, Sodium Level 139, Potassium Level 4.0, Chloride Level 102, Carbon Dioxide Level 30, Anion Gap 7, Blood Urea Nitrogen 7, Creatinine 0.7, Estimat Glomerular Filtration Rate , Glucose Level 118H, Calcium Level 8.9 Height (Feet): 5 Height (Inches): 7.00 Weight (Pounds): 115 General Appearance: lethargic EENT: normal ENT inspection Neck: normal alignment Cardiovascular: normal peripheral pulses, normal rate, regular rhythm Respiratory/Chest: chest wall non-tender, decreased breath sounds Abdomen: normal bowel sounds, non tender, soft Extremities: normal inspection Edema: no edema noted Arm (L), no edema noted Arm (R), no edema noted Leg (L), no edema noted Leg (R), no edema noted Pedal (L), no edema noted Pedal (R), no edema noted Generalized Neurologic: motor weakness Skin: normal pigmentation, warm/dry Julien Chery DO May 22, 2018 13:46
--- NOTE | 2018-05-22 15:05 | Cardiology Report ---
APPROVED REPORT EKG Measurement Heart [id number] Sinus tachycardia with premature supraventricular complexes Nonspecific ST and T wave abnormality Abnormal ECG
[2018-05-22 16:00] VITALS: BP 130/75
[2018-05-22] MEDS ORDERED: Vancomycin 750mg/NS 250ml IVPB SCH ×2 (16:30→17:00)
[2018-05-22 20:15] VITALS: BP 142/68
[2018-05-23] VITALS: BP 159/68
[2018-05-23 04:00] VITALS: BP 134/73
[2018-05-23] MEDS: Levothyroxine 25mcg tab ORAL SCH (05:23)
[2018-05-23 07:09] LABS: BASOPHILS % (AUTO) 0.9 % (0.0-2.0); EOSINOPHILS % (AUTO) 1.4 % (0.0-3.0); HEMATOCRIT 35.6 % (42.0-52.0); HEMOGLOBIN 10.9 G/DL (14.2-18.0); MEAN CORPUSCULAR VOLUME 86 FL (80-99); MONOCYTES % (AUTO) 11.3 % (1.0-10.0); NEUTROPHILS % (AUTO) 70.4 % (45.0-75.0); PLATELET COUNT 220 K/UL (150-450); RED BLOOD COUNT 4.16 M/UL (4.70-6.10); RED CELL DISTRIBUTION WIDTH 13.9 % (11.6-14.8); WHITE BLOOD COUNT 9.3 K/UL (4.8-10.8)
[2018-05-23 07:26] LABS: ALANINE AMINOTRANSFERASE 16 U/L (12-78); ALBUMIN 2.4 G/DL (3.4-5.0); ALBUMIN/GLOBULIN RATIO 0.5 (1.0-2.7); ALKALINE PHOSPHATASE 55 U/L (46-116); ANION GAP 4 mmol/L (5-15); ASPARTATE AMINO TRANSFERASE 15 U/L (15-37); BILIRUBIN,TOTAL 0.3 MG/DL (0.2-1.0); BLOOD UREA NITROGEN 7 mg/dL (7-18); CALCIUM 8.9 MG/DL (8.5-10.1); CARBON DIOXIDE 33 MMOL/L (21-32); CHLORIDE 102 MMOL/L (98-107); CREATININE 0.8 MG/DL (0.55-1.30); PHOSPHORUS 3.1 MG/DL (2.5-4.9); POTASSIUM 3.8 MMOL/L (3.5-5.1); SODIUM 138 MMOL/L (136-145)
--- NOTE | 2018-05-23 07:52 | Cardiology Report ---
APPROVED REPORT EXAM: Two-dimensional and M-mode echocardiogram with Doppler and color Doppler. INDICATION HYPERTENSION M-Mode DIMENSIONS IVSd1.0 (0.7-1.1cm)Left Atrium (MM)2.3 (1.6-4.0cm) LVDd3.8 (3.5-5.6cm)Aortic Root2.4 (2.0-3.7cm) PWd1.0 (0.7-1.1cm)Aortic Cusp Exc.1.6 (1.5-2.0cm) IVSs1.5 cm LVDs2.4 (2.5-4.0cm) PWs1.8 cm Normal left ventricular chamber size, systolic function and wall motion . Left ventricular ejection fraction estimated to be 55-60 %. No evidence of left ventricular hypertrophy. Anterior Echo-free space, may be due to pericardial fat or effusion. All other cardiac chamber sizes are within normal limits. Focal aortic valve sclerosis with adequate cusp excursion. Mildly thickened mitral valve leaflets with normal excursion. Mitral annulus and aortic root calcification. Pulmonic valve structure not well visualized . Normal tricuspid valve structure. IVC in normal size with physiologic collapse . A color flow and spectral Doppler study was performed and revealed: No aortic regurgitation. Mild mitral regurgitation. Mitral diastolic velocities suggest reduced left ventricular relaxation c/w mild LV diastolic dysfunction (Grade I ) Trace tricuspid regurgitation. Tricuspid systolic velocities suggests peak right ventricular systolic pressure of 16 mmHg.
[2018-05-23 08:00] VITALS: BP 149/64
[2018-05-23] MEDS: Lisinopril 20mg tab ORAL SCH (08:54)
--- NOTE | 2018-05-23 10:50 | Infectious Diseases Prog Note ---
Assessment/Plan Assessment/Plan Abx: IV Vancomycin 05/21- Assessment: Afebrile Leukocytosis, SP -likely reactive -CXR: no acute disease -CT abd/p: Gallbladder sludge versus stones. Nonspecific ill-defined sclerotic focus in the left ilium measuring 2.6 cm. The nature of this finding is not known but differential includes metastatic disease. Further evaluation is recommended. Moderate arterial vascular disease. Abnormal appearance of the right ilium with increased trabecular markings, nonspecific. Consider possibility of Paget's disease. Old granulomatous disease. Diverticulosis of the colon. No definite diverticulitis. Distended urinary bladder. Prostate hypertrophy. Small bilateral inguinal hernias containing fat. Diphtheroids bacteremia- likely contaminant' -05/18 +1/; 05/21 NTD x4 Bacteriuria, asymptomatic -u/a wbc 0-2, nit +, leuk est neg; ucxProteus penneri (R AMp, ancef, otherwise negative) Acute encephalopathy -Brain MRI: Limited exam, as described. Chronic and age-related changes. Multiple old lacunar infarcts. Negative for acute intracranial bleed, mass effect, or infarct HTN COPD/asthma multiple CVA prostate CA -bone scan: Osteoporosis. Lumbosacral spondylosis. No plain radiographic evidence of osseous metastases or myelomatous deposits Plan: -d/c empiric IV Vancomycin #3 and monitor off abx -f/u cx -Monitor CBC/CMP, temperatures -aspiration precautions Thank you for this consultation. Will continue to follow along with you. Discussed with RN. Subjective Allergies: Coded Allergies: PENICILLINS (Verified Allergy, Severe, Hives, 04/19/18) Objective Vital Signs Last 24 Hour Vital Signs Date Time Temp Pulse Resp B/P (MAP) Pulse Ox O2 Delivery O2 Flow Rate FiO2 05/23/18 08:54 149/64 05/23/18 08:00 97.3 92 18 149/64 (92) 97 05/23/18 04:00 98.1 77 16 134/73 (93) 100 05/23/18 00:00 98.3 94 18 159/68 (98) 99 05/22/18 22:46 101 20 99 Nasal Cannula 2.0 28 05/22/18 22:32 87 20 Nasal Cannula 2.0 28 05/22/18 22:32 87 20 98 Nasal Cannula 2.0 28 05/22/18 20:19 Room Air 05/22/18 20:15 99.0 92 19 142/68 (92) 98 05/22/18 16:00 97.2 94 20 130/75 (93) 97 05/22/18 12:00 98.6 81 16 133/71 (91) 97 Height (Feet): 5 Height (Inches): 7.00 Weight (Pounds): 116 Objective General Appearance: alert , confused, garbled speech Lines, tubes and drains: peripheral HEENT: normocephalic, atraumatic Neck: supple Respiratory/Chest: lungs clear - with moderate air exchange Cardiovascular/Chest: normal peripheral pulses, no JVD, tachycardia - ST with PAC Abdomen: normal bowel sounds, soft Skin Exam: warm/dry Neurologic: abnormal gait, awake, confused, garbled speech Microbiology Date/Time Source Procedure Growth Status 05/21/18 16:45 Blood Blood Culture - Preliminary NO GROWTH AFTER 24 HOURS Resulted 05/21/18 16:45 Blood Blood Culture - Preliminary NO GROWTH AFTER 24 HOURS Resulted 05/20/18 13:59 Urine,Clean Catch Urine Culture - Final Proteus Penneri Mixed Gram Positive Organism Complete Laboratory Tests Test 05/23/18 05:40 White Blood Count 9.3 K/UL (4.8-10.8) Red Blood Count 4.16 M/UL (4.70-6.10) L Hemoglobin 10.9 G/DL (14.2-18.0) L Hematocrit 35.6 % (42.0-52.0) L Mean Corpuscular Volume 86 FL (80-99) Mean Corpuscular Hemoglobin 26.2 PG (27.0-31.0) L Mean Corpuscular Hemoglobin Concent 30.7 G/DL (32.0-36.0) L Red Cell Distribution Width 13.9 % (11.6-14.8) Platelet Count 220 K/UL (150-450) Mean Platelet Volume 6.8 FL (6.5-10.1) Neutrophils (%) (Auto) 70.4 % (45.0-75.0) Lymphocytes (%) (Auto) 16.0 % (20.0-45.0) L Monocytes (%) (Auto) 11.3 % (1.0-10.0) H Eosinophils (%) (Auto) 1.4 % (0.0-3.0) Basophils (%) (Auto) 0.9 % (0.0-2.0) Sodium Level 138 MMOL/L (136-145) Potassium Level 3.8 MMOL/L (3.5-5.1) Chloride Level 102 MMOL/L (98-107) Carbon Dioxide Level 33 MMOL/L (21-32) H Anion Gap 4 mmol/L (5-15) L Blood Urea Nitrogen 7 mg/dL (7-18) Creatinine 0.8 MG/DL (0.55-1.30) Estimat Glomerular Filtration Rate mL/min (>60) Glucose Level 108 MG/DL (74-106) H Calcium Level 8.9 MG/DL (8.5-10.1) Phosphorus Level 3.1 MG/DL (2.5-4.9) Magnesium Level 1.8 MG/DL (1.8-2.4) Total Bilirubin 0.3 MG/DL (0.2-1.0) Aspartate Amino Transf (AST/SGOT) 15 U/L (15-37) Alanine Aminotransferase (ALT/SGPT) 16 U/L (12-78) Alkaline Phosphatase 55 U/L (46-116) Total Protein 7.2 G/DL (6.4-8.2) Albumin 2.4 G/DL (3.4-5.0) L Globulin 4.8 g/dL Albumin/Globulin Ratio 0.5 (1.0-2.7) L Hepatitis A Antibody Total Pending Hepatitis B Surface Antibody Pending Hepatitis B Core Total Antibody Pending Hepatitis C Antibody Pending Hepatitis C RNA (PCR) IUs/ml Pending Hepatitis C RNA (PCR) log IUs/ml Pending HIV (1&2) Antibody Rapid Negative (NEGATIVE) Current Medications Medications (Trade) Dose Ordered Sig/Rafa Route PRN Reason Start Time Stop Time Status Last Admin Dose Admin Acetaminophen (Tylenol) 650 mg Q4H PRN ORAL fever 05/20/18 08:54 06/17/18 08:53 Al Hydroxide/Mg Hydroxide (Mylanta II) 30 ml Q6H PRN ORAL dyspepsia 05/20/18 08:54 06/17/18 08:53 Albuterol/ Ipratropium (Albuterol/ Ipratropium) 3 ml Q4H PRN HHN Shortness of Breath 05/20/18 08:54 05/24/18 08:53 05/21/18 22:32 Clonidine HCl (Catapres Tab) 0.1 mg Q2H PRN ORAL For High Blood Pressure 05/20/18 17:30 06/19/18 17:29 Dextrose (Dextrose 50%) 25 ml Q30M PRN IV Hypoglycemia 05/20/18 09:00 06/19/18 08:55 Dextrose (Dextrose 50%) 50 ml Q30M PRN IV hypoglycemia 05/20/18 09:00 06/19/18 08:59 Levothyroxine Sodium (Synthroid) 25 mcg DAILY@0630 ORAL 05/21/18 06:30 06/20/18 06:29 05/23/18 05:23 Lisinopril (Prinivil) 40 mg DAILY ORAL 05/21/18 09:00 06/20/18 08:59 05/23/18 08:54 Lorazepam (Ativan 2mg/ml 1ml) 0.5 mg Q4H PRN IV For Anxiety 05/20/18 08:54 05/25/18 08:53 05/21/18 09:57 Morphine Sulfate (Morphine Sulfate) 2 mg Q4H PRN IVP pain 05/20/18 08:54 05/25/18 08:53 Ondansetron HCl (Zofran) 4 mg Q6H PRN IVP Nausea & Vomiting 05/20/18 08:55 06/17/18 08:54 Polyethylene Glycol (Miralax) 17 gm HSPRN PRN ORAL Constipation 05/20/18 08:55 06/17/18 08:54 Vancomycin HCl (Vanco rx to dose) 1 ea DAILY PRN MISC Per rx protocol 05/21/18 16:30 06/20/18 16:29 Vancomycin/Sodium Chloride 250 ml @ 166.667 mls/hr Q24H IVPB 05/22/18 17:00 05/27/18 16:59 05/22/18 17:27 Zolpidem Tartrate (Ambien) 5 mg HSPRN PRN ORAL Insomnia 05/20/18 08:55 05/25/18 08:54 Lissy Harris M.D. May 23, 2018 10:50
[2018-05-23 11:52] VITALS: BP 137/63
--- NOTE | 2018-05-23 14:04 | Pulmonology Progress Note ---
Assessment/Plan Problems: (1) COPD (chronic obstructive pulmonary disease) (2) Impaired mobility and ADLs (3) Prostate CA (4) Anemia (5) Diabetes (6) Malnutrition (7) HTN (hypertension) Assessment/Plan PSA and CEA are normal rule out metastasis symptomatic treatment anemia w/u sliding scale monitor BP monitor off abx Subjective ROS Limited/Unobtainable: No Constitutional: Reports: no symptoms HEENT: Repors: no symptoms Respiratory: Reports: no symptoms Allergies: Coded Allergies: PENICILLINS (Verified Allergy, Severe, Hives, 04/19/18) Objective Last 24 Hour Vital Signs Date Time Temp Pulse Resp B/P (MAP) Pulse Ox O2 Delivery O2 Flow Rate FiO2 05/23/18 11:52 97.5 82 19 137/63 (87) 100 05/23/18 09:42 91 18 Nasal Cannula 2.0 28 05/23/18 09:00 Room Air 05/23/18 08:54 149/64 05/23/18 08:00 97.3 92 18 149/64 (92) 97 05/23/18 04:00 98.1 77 16 134/73 (93) 100 05/23/18 00:00 98.3 94 18 159/68 (98) 99 05/22/18 22:46 101 20 99 Nasal Cannula 2.0 28 05/22/18 22:32 87 20 Nasal Cannula 2.0 28 05/22/18 22:32 87 20 98 Nasal Cannula 2.0 28 05/22/18 20:19 Room Air 05/22/18 20:15 99.0 92 19 142/68 (92) 98 05/22/18 16:00 97.2 94 20 130/75 (93) 97 Intake and Output 05/22/18 05/23/18 19:00 07:00 Intake Total 406.667 ml Output Total 225 ml 250 ml Balance 181.667 ml -250 ml Intake Oral 240 ml IV Total 166.667 ml Output Urine Total 225 ml 250 ml # Bowel Movements 2 Objective General Appearance: cachetic HEENT: normocephalic, atraumatic Respiratory/Chest: chest wall non-tender, lungs clear Cardiovascular: normal peripheral pulses, normal rate Abdomen: normal bowel sounds, soft, non tender Genitourinary: normal external genitalia Extremities: no clubbing Skin: no lesions Neurologic/Psychiatric: normal mood/affect Musculoskeletal: normal muscle bulk Microbiology Date/Time Source Procedure Growth Status 05/21/18 16:45 Blood Blood Culture - Preliminary NO GROWTH AFTER 24 HOURS Resulted 05/21/18 16:45 Blood Blood Culture - Preliminary NO GROWTH AFTER 24 HOURS Resulted Laboratory Tests 05/23/18 05:40: White Blood Count 9.3, Red Blood Count 4.16L, Hemoglobin 10.9L, Hematocrit 35.6L , Mean Corpuscular Volume 86, Mean Corpuscular Hemoglobin 26.2L, Mean Corpuscular Hemoglobin Concent 30.7L, Red Cell Distribution Width 13.9, Platelet Count 220, Mean Platelet Volume 6.8, Neutrophils (%) (Auto) 70.4, Lymphocytes (%) (Auto) 16.0L, Monocytes (%) (Auto) 11.3H, Eosinophils (%) (Auto ) 1.4, Basophils (%) (Auto) 0.9, Sodium Level 138, Potassium Level 3.8, Chloride Level 102, Carbon Dioxide Level 33H, Anion Gap 4L, Blood Urea Nitrogen 7, Creatinine 0.8, Estimat Glomerular Filtration Rate , Glucose Level 108H, Calcium Level 8.9, Phosphorus Level 3.1, Magnesium Level 1.8, Total Bilirubin 0.3, Aspartate Amino Transf (AST/SGOT) 15, Alanine Aminotransferase (ALT/SGPT) 16, Alkaline Phosphatase 55, Total Protein 7.2, Albumin 2.4L, Globulin 4.8, Albumin/Globulin Ratio 0.5L, Hepatitis A Antibody Total [Pending], Hepatitis B Surface Antibody [Pending], Hepatitis B Core Total Antibody [Pending], Hepatitis C Antibody [Pending], Hepatitis C RNA (PCR) IUs/ml [Pending], Hepatitis C RNA (PCR) log IUs/ml [Pending], HIV (1&2) Antibody Rapid Negative Current Medications Medications (Trade) Dose Ordered Sig/Rafa Route PRN Reason Start Time Stop Time Status Last Admin Dose Admin Acetaminophen (Tylenol) 650 mg Q4H PRN ORAL fever 05/20/18 08:54 06/17/18 08:53 Al Hydroxide/Mg Hydroxide (Mylanta II) 30 ml Q6H PRN ORAL dyspepsia 05/20/18 08:54 06/17/18 08:53 Albuterol/ Ipratropium (Albuterol/ Ipratropium) 3 ml Q4H PRN HHN Shortness of Breath 05/20/18 08:54 05/24/18 08:53 05/21/18 22:32 Clonidine HCl (Catapres Tab) 0.1 mg Q2H PRN ORAL For High Blood Pressure 05/20/18 17:30 06/19/18 17:29 Dextrose (Dextrose 50%) 25 ml Q30M PRN IV Hypoglycemia 05/20/18 09:00 06/19/18 08:55 Dextrose (Dextrose 50%) 50 ml Q30M PRN IV hypoglycemia 05/20/18 09:00 06/19/18 08:59 Levothyroxine Sodium (Synthroid) 25 mcg DAILY@0630 ORAL 05/21/18 06:30 06/20/18 06:29 05/23/18 05:23 Lisinopril (Prinivil) 40 mg DAILY ORAL 05/21/18 09:00 06/20/18 08:59 05/23/18 08:54 Lorazepam (Ativan 2mg/ml 1ml) 0.5 mg Q4H PRN IV For Anxiety 05/20/18 08:54 05/25/18 08:53 05/21/18 09:57 Morphine Sulfate (Morphine Sulfate) 2 mg Q4H PRN IVP pain 05/20/18 08:54 05/25/18 08:53 Ondansetron HCl (Zofran) 4 mg Q6H PRN IVP Nausea & Vomiting 05/20/18 08:55 06/17/18 08:54 Polyethylene Glycol (Miralax) 17 gm HSPRN PRN ORAL Constipation 05/20/18 08:55 06/17/18 08:54 Zolpidem Tartrate (Ambien) 5 mg HSPRN PRN ORAL Insomnia 05/20/18 08:55 05/25/18 08:54 Bridger Robin MD May 23, 2018 14:04
--- NOTE | 2018-05-23 14:23 | Cardiac Electrophysiology PN ---
Assessment/Plan Assessment/Plan 1. HTN urgency On Lisinopril 40 2. Hypokalemia, replaced 3. Acute metabolic encephalopathy, possibly due to dehydration and uncontrolled HTN 4. Hx of multiple strokes 5. Leukocytosis 6. COPD 7. Dehydration 8. Hx of prostate Ca 9. Sclerotic focus in the left ilium, r/o bone mets 10. UTI Subjective Subjective Comfortable in NAD. On Non monitored bed Objective Last 24 Hour Vital Signs Date Time Temp Pulse Resp B/P (MAP) Pulse Ox O2 Delivery O2 Flow Rate FiO2 05/23/18 11:52 97.5 82 19 137/63 (87) 100 05/23/18 09:42 91 18 Nasal Cannula 2.0 28 05/23/18 09:00 Room Air 05/23/18 08:54 149/64 05/23/18 08:00 97.3 92 18 149/64 (92) 97 05/23/18 04:00 98.1 77 16 134/73 (93) 100 05/23/18 00:00 98.3 94 18 159/68 (98) 99 05/22/18 22:46 101 20 99 Nasal Cannula 2.0 28 05/22/18 22:32 87 20 Nasal Cannula 2.0 28 05/22/18 22:32 87 20 98 Nasal Cannula 2.0 28 05/22/18 20:19 Room Air 05/22/18 20:15 99.0 92 19 142/68 (92) 98 05/22/18 16:00 97.2 94 20 130/75 (93) 97 Intake and Output 05/22/18 05/23/18 19:00 07:00 Intake Total 406.667 ml Output Total 225 ml 250 ml Balance 181.667 ml -250 ml Intake Oral 240 ml IV Total 166.667 ml Output Urine Total 225 ml 250 ml # Bowel Movements 2 Laboratory Tests Test 05/23/18 05:40 White Blood Count 9.3 K/UL (4.8-10.8) Red Blood Count 4.16 M/UL (4.70-6.10) L Hemoglobin 10.9 G/DL (14.2-18.0) L Hematocrit 35.6 % (42.0-52.0) L Mean Corpuscular Volume 86 FL (80-99) Mean Corpuscular Hemoglobin 26.2 PG (27.0-31.0) L Mean Corpuscular Hemoglobin Concent 30.7 G/DL (32.0-36.0) L Red Cell Distribution Width 13.9 % (11.6-14.8) Platelet Count 220 K/UL (150-450) Mean Platelet Volume 6.8 FL (6.5-10.1) Neutrophils (%) (Auto) 70.4 % (45.0-75.0) Lymphocytes (%) (Auto) 16.0 % (20.0-45.0) L Monocytes (%) (Auto) 11.3 % (1.0-10.0) H Eosinophils (%) (Auto) 1.4 % (0.0-3.0) Basophils (%) (Auto) 0.9 % (0.0-2.0) Sodium Level 138 MMOL/L (136-145) Potassium Level 3.8 MMOL/L (3.5-5.1) Chloride Level 102 MMOL/L (98-107) Carbon Dioxide Level 33 MMOL/L (21-32) H Anion Gap 4 mmol/L (5-15) L Blood Urea Nitrogen 7 mg/dL (7-18) Creatinine 0.8 MG/DL (0.55-1.30) Estimat Glomerular Filtration Rate mL/min (>60) Glucose Level 108 MG/DL (74-106) H Calcium Level 8.9 MG/DL (8.5-10.1) Phosphorus Level 3.1 MG/DL (2.5-4.9) Magnesium Level 1.8 MG/DL (1.8-2.4) Total Bilirubin 0.3 MG/DL (0.2-1.0) Aspartate Amino Transf (AST/SGOT) 15 U/L (15-37) Alanine Aminotransferase (ALT/SGPT) 16 U/L (12-78) Alkaline Phosphatase 55 U/L (46-116) Total Protein 7.2 G/DL (6.4-8.2) Albumin 2.4 G/DL (3.4-5.0) L Globulin 4.8 g/dL Albumin/Globulin Ratio 0.5 (1.0-2.7) L Hepatitis A Antibody Total Pending Hepatitis B Surface Antibody Pending Hepatitis B Core Total Antibody Pending Hepatitis C Antibody Pending Hepatitis C RNA (PCR) IUs/ml Pending Hepatitis C RNA (PCR) log IUs/ml Pending HIV (1&2) Antibody Rapid Negative (NEGATIVE) Microbiology Date/Time Source Procedure Growth Status 05/21/18 16:45 Blood Blood Culture - Preliminary NO GROWTH AFTER 24 HOURS Resulted 05/21/18 16:45 Blood Blood Culture - Preliminary NO GROWTH AFTER 24 HOURS Resulted Objective HEENT: No JVD LUNGS: Clear CVS: RRR, No G/R/M ABDOMEN: soft EXT: No edema Ang Hickman MD May 23, 2018 14:23
--- NOTE | 2018-05-23 14:39 | General Progress Note ---
Assessment/Plan Problem List: (1) Malnutrition ICD Codes: E46 - Unspecified protein-calorie malnutrition SNOMED: 24090696 (2) Diabetes ICD Codes: E11.9 - Type 2 diabetes mellitus without complications SNOMED: 67964083 (3) Anemia ICD Codes: D64.9 - Anemia, unspecified SNOMED: 259858829 (4) HTN (hypertension) ICD Codes: I10 - Essential (primary) hypertension SNOMED: 19720502 (5) Altered level of consciousness ICD Codes: R40.4 - Transient alteration of awareness SNOMED: 5661792 (6) COPD exacerbation ICD Codes: J44.1 - Chronic obstructive pulmonary disease with (acute) exacerbation SNOMED: 582000208 (7) Dehydration ICD Codes: E86.0 - Dehydration SNOMED: 07037627 (8) COPD (chronic obstructive pulmonary disease) ICD Codes: J44.9 - Chronic obstructive pulmonary disease, unspecified SNOMED: 17110885 (9) Sepsis ICD Codes: A41.9 - Sepsis, unspecified organism SNOMED: 43344472 Status: stable, progressing Assessment/Plan o2 pulm tx pt bp bs control dc if clear Subjective Constitutional: Reports: weakness Allergies: Coded Allergies: PENICILLINS (Verified Allergy, Severe, Hives, 04/19/18) All Systems: reviewed and negative except above Subjective o2nc sl anxious Objective Last 24 Hour Vital Signs Date Time Temp Pulse Resp B/P (MAP) Pulse Ox O2 Delivery O2 Flow Rate FiO2 05/23/18 11:52 97.5 82 19 137/63 (87) 100 05/23/18 09:42 91 18 Nasal Cannula 2.0 28 05/23/18 09:00 Room Air 05/23/18 08:54 149/64 05/23/18 08:00 97.3 92 18 149/64 (92) 97 05/23/18 04:00 98.1 77 16 134/73 (93) 100 05/23/18 00:00 98.3 94 18 159/68 (98) 99 05/22/18 22:46 101 20 99 Nasal Cannula 2.0 28 05/22/18 22:32 87 20 Nasal Cannula 2.0 28 05/22/18 22:32 87 20 98 Nasal Cannula 2.0 28 05/22/18 20:19 Room Air 05/22/18 20:15 99.0 92 19 142/68 (92) 98 05/22/18 16:00 97.2 94 20 130/75 (93) 97 Intake and Output 05/22/18 05/23/18 19:00 07:00 Intake Total 406.667 ml Output Total 225 ml 250 ml Balance 181.667 ml -250 ml Intake Oral 240 ml IV Total 166.667 ml Output Urine Total 225 ml 250 ml # Bowel Movements 2 Laboratory Tests 05/23/18 05:40: White Blood Count 9.3, Red Blood Count 4.16L, Hemoglobin 10.9L, Hematocrit 35.6L , Mean Corpuscular Volume 86, Mean Corpuscular Hemoglobin 26.2L, Mean Corpuscular Hemoglobin Concent 30.7L, Red Cell Distribution Width 13.9, Platelet Count 220, Mean Platelet Volume 6.8, Neutrophils (%) (Auto) 70.4, Lymphocytes (%) (Auto) 16.0L, Monocytes (%) (Auto) 11.3H, Eosinophils (%) (Auto ) 1.4, Basophils (%) (Auto) 0.9, Sodium Level 138, Potassium Level 3.8, Chloride Level 102, Carbon Dioxide Level 33H, Anion Gap 4L, Blood Urea Nitrogen 7, Creatinine 0.8, Estimat Glomerular Filtration Rate , Glucose Level 108H, Calcium Level 8.9, Phosphorus Level 3.1, Magnesium Level 1.8, Total Bilirubin 0.3, Aspartate Amino Transf (AST/SGOT) 15, Alanine Aminotransferase (ALT/SGPT) 16, Alkaline Phosphatase 55, Total Protein 7.2, Albumin 2.4L, Globulin 4.8, Albumin/Globulin Ratio 0.5L, Hepatitis A Antibody Total [Pending], Hepatitis B Surface Antibody [Pending], Hepatitis B Core Total Antibody [Pending], Hepatitis C Antibody [Pending], Hepatitis C RNA (PCR) IUs/ml [Pending], Hepatitis C RNA (PCR) log IUs/ml [Pending], HIV (1&2) Antibody Rapid Negative Height (Feet): 5 Height (Inches): 7.00 Weight (Pounds): 116 General Appearance: lethargic EENT: normal ENT inspection Neck: normal alignment Cardiovascular: normal peripheral pulses, normal rate, regular rhythm Respiratory/Chest: chest wall non-tender, lungs clear, normal breath sounds Abdomen: normal bowel sounds, non tender, soft Extremities: normal inspection Edema: no edema noted Arm (L), no edema noted Arm (R), no edema noted Leg (L), no edema noted Leg (R), no edema noted Pedal (L), no edema noted Pedal (R), no edema noted Generalized Neurologic: responsive, motor weakness Skin: normal pigmentation, warm/dry Julien Chery DO May 23, 2018 14:39
[2018-05-23 16:00] VITALS: BP 141/70
[2018-05-23] MEDS ORDERED: SYNTHROID25 MCG ORAL (19:31)
[2018-05-23 20:00] VITALS: BP 142/79
[2018-05-23] MEDS: Albuterol/Ipratropium 3ml neb HHN PRN (22:26)
[2018-05-24] VITALS: BP 131/53
[2018-05-24] MEDS: Albuterol/Ipratropium 3ml neb HHN PRN (02:17)
[2018-05-24 04:00] VITALS: BP 136/56
[2018-05-24] MEDS: Levothyroxine 25mcg tab ORAL SCH (05:50)
[2018-05-24 08:00] VITALS: BP 135/60
[2018-05-24] MEDS: Lisinopril 20mg tab ORAL SCH (09:04)
--- NOTE | 2018-05-24 10:00 | Consultation ---
DATE OF CONSULTATION: 05/20/2018 GASTROENTEROLOGY CONSULTATION CONSULTING PHYSICIAN: Basilio Kirkpatrick M.D. REFERRING PHYSICIAN: Julien Chery D.O. CHIEF COMPLAINT: I was asked to see this patient by Dr. Julien Chery for evaluation of gastrointestinal issues. HISTORY OF PRESENT ILLNESS: The patient is a debilitated 87-year-old man who is a poor historian. He was brought into the hospital due to altered mental status and encephalopathy. The patient himself is unable to provide much history and most of the information is only available from the chart. The patient has other medical problems, which are outlined below. He was apparently somewhat independent prior to this admission. PAST MEDICAL HISTORY: History of hypertension, COPD, asthma, and prostate cancer. FAMILY HISTORY: Unobtainable and unavailable. SOCIAL HISTORY: Unobtainable and unavailable. REVIEW OF SYSTEMS: Unobtainable and unavailable. MEDICATIONS: See chart list for details. ALLERGIES: Penicillin. PHYSICAL EXAMINATION: GENERAL: This is a thin man who is mumbling incoherently, seen in his room. HEENT: Normocephalic and atraumatic. Sclerae anicteric. Oropharynx clear. Dentition is poor. NECK: Supple. CHEST: Clear to auscultation except for scattered rhonchi. CARDIOVASCULAR: Revealed a regular rate. ABDOMEN: Soft. Flat. Good bowel sounds. EXTREMITIES: Revealed no edema. LABORATORY DATA: Noted. ASSESSMENT: This patient presents with altered mental status and encephalopathy. He also has some mild degree of liver test abnormalities. They both have to be evaluated separately. The patient should be seen by neurology services. A head CT has been done showing some degree of lacunar infarcts and some small vessel disease. The abdominal CT showed some gallbladder sludge versus stones. Serologies ca be checked to rule out chronic hepatitis. I will follow his laboratory parameters and for push oral intake if he tolerated. The other laboratory parameters have been ordered and will be followed as well. RECOMMENDATIONS: 1. Check hepatitis serologies. 2. IV hydration. 3. Push oral intake. 4. Neurology evaluation. Thank you for asking me to participate in the care of this patient. Basilio Kirkpatrick M.D. DR: MAGUI JOB#: [id number] CC: MARGIE
--- NOTE | 2018-05-24 11:29 | Infectious Diseases Prog Note ---
Assessment/Plan Assessment/Plan Assessment: Afebrile Leukocytosis, SP -likely reactive -CXR: no acute disease -CT abd/p: Gallbladder sludge versus stones. Nonspecific ill-defined sclerotic focus in the left ilium measuring 2.6 cm. The nature of this finding is not known but differential includes metastatic disease. Further evaluation is recommended. Moderate arterial vascular disease. Abnormal appearance of the right ilium with increased trabecular markings, nonspecific. Consider possibility of Paget's disease. Old granulomatous disease. Diverticulosis of the colon. No definite diverticulitis. Distended urinary bladder. Prostate hypertrophy. Small bilateral inguinal hernias containing fat. Diphtheroids bacteremia- likely contaminant' -05/18 +/; 05/21 NTD x4 Bacteriuria, asymptomatic -u/a wbc 0-2, nit +, leuk est neg; ucxProteus penneri (R AMp, ancef, otherwise negative) Acute encephalopathy -Brain MRI: Limited exam, as described. Chronic and age-related changes. Multiple old lacunar infarcts. Negative for acute intracranial bleed, mass effect, or infarct HTN COPD/asthma multiple CVA prostate CA -bone scan: Osteoporosis. Lumbosacral spondylosis. No plain radiographic evidence of osseous metastases or myelomatous deposits Plan: -Cont to monitor off abx -05/23 SP IV Vancomycin #3 -f/u cx -Monitor CBC/CMP, temperatures -aspiration precautions Thank you for this consultation. Will continue to follow along with you. Discussed with RN. Subjective Allergies: Coded Allergies: PENICILLINS (Verified Allergy, Severe, Hives, 04/19/18) Subjective afebrile no leukocytosis repeat Bcx NTD Objective Vital Signs Last 24 Hour Vital Signs Date Time Temp Pulse Resp B/P (MAP) Pulse Ox O2 Delivery O2 Flow Rate FiO2 05/24/18 09:04 135/60 05/24/18 09:00 Room Air 05/24/18 08:00 97.1 78 18 135/60 (85) 99 05/24/18 07:54 98 18 Nasal Cannula 2.0 28 05/24/18 04:00 98.6 89 16 136/56 (82) 93 05/24/18 02:38 98 18 99 Nasal Cannula 2.0 28 05/24/18 02:17 92 20 98 Nasal Cannula 2.0 28 05/24/18 00:00 99.0 91 22 131/53 (79) 96 05/23/18 22:27 95 22 Nasal Cannula 2.0 28 05/23/18 22:27 95 22 100 Nasal Cannula 2.0 28 05/23/18 22:00 94 18 Nasal Cannula 2.0 28 05/23/18 21:17 Room Air 05/23/18 20:00 98.8 87 18 142/79 (100) 100 05/23/18 16:00 97.9 97 19 141/70 (93) 97 05/23/18 11:52 97.5 82 19 137/63 (87) 100 Height (Feet): 5 Height (Inches): 7.00 Weight (Pounds): 116 Objective General Appearance: alert , confused, garbled speech Lines, tubes and drains: peripheral HEENT: normocephalic, atraumatic Neck: supple Respiratory/Chest: lungs clear - with moderate air exchange Cardiovascular/Chest: normal peripheral pulses, no JVD, tachycardia - ST with PAC Abdomen: normal bowel sounds, soft Skin Exam: warm/dry Neurologic: abnormal gait, awake, confused, garbled speech Microbiology Date/Time Source Procedure Growth Status 05/21/18 16:45 Blood Blood Culture - Preliminary NO GROWTH AFTER 48 HOURS Resulted 05/21/18 16:45 Blood Blood Culture - Preliminary NO GROWTH AFTER 48 HOURS Resulted Current Medications Medications (Trade) Dose Ordered Sig/Rafa Route PRN Reason Start Time Stop Time Status Last Admin Dose Admin Acetaminophen (Tylenol) 650 mg Q4H PRN ORAL fever 05/20/18 08:54 06/17/18 08:53 Al Hydroxide/Mg Hydroxide (Mylanta II) 30 ml Q6H PRN ORAL dyspepsia 05/20/18 08:54 06/17/18 08:53 Clonidine HCl (Catapres Tab) 0.1 mg Q2H PRN ORAL For High Blood Pressure 05/20/18 17:30 06/19/18 17:29 Dextrose (Dextrose 50%) 25 ml Q30M PRN IV Hypoglycemia 05/20/18 09:00 06/19/18 08:55 Dextrose (Dextrose 50%) 50 ml Q30M PRN IV hypoglycemia 05/20/18 09:00 06/19/18 08:59 Levothyroxine Sodium (Synthroid) 25 mcg DAILY@0630 ORAL 05/21/18 06:30 06/20/18 06:29 05/24/18 05:50 Lisinopril (Prinivil) 40 mg DAILY ORAL 05/21/18 09:00 06/20/18 08:59 05/24/18 09:04 Lorazepam (Ativan 2mg/ml 1ml) 0.5 mg Q4H PRN IV For Anxiety 05/20/18 08:54 05/25/18 08:53 05/21/18 09:57 Morphine Sulfate (Morphine Sulfate) 2 mg Q4H PRN IVP pain 05/20/18 08:54 05/25/18 08:53 Ondansetron HCl (Zofran) 4 mg Q6H PRN IVP Nausea & Vomiting 05/20/18 08:55 06/17/18 08:54 Polyethylene Glycol (Miralax) 17 gm HSPRN PRN ORAL Constipation 05/20/18 08:55 06/17/18 08:54 Zolpidem Tartrate (Ambien) 5 mg HSPRN PRN ORAL Insomnia 05/20/18 08:55 05/25/18 08:54 Lissy Harris M.D. May 24, 2018 11:29
[2018-05-24 12:00] VITALS: BP 127/66
--- NOTE | 2018-05-24 12:53 | Pulmonology Progress Note ---
Assessment/Plan Problems: (1) COPD (chronic obstructive pulmonary disease) (2) Impaired mobility and ADLs (3) Prostate CA (4) Anemia (5) Diabetes (6) Malnutrition (7) HTN (hypertension) Assessment/Plan PSA and CEA are normal rule out metastasis symptomatic treatment anemia w/u sliding scale monitor BP monitor off abx Subjective ROS Limited/Unobtainable: No Constitutional: Reports: no symptoms HEENT: Repors: no symptoms Respiratory: Reports: no symptoms Allergies: Coded Allergies: PENICILLINS (Verified Allergy, Severe, Hives, 04/19/18) Objective Last 24 Hour Vital Signs Date Time Temp Pulse Resp B/P (MAP) Pulse Ox O2 Delivery O2 Flow Rate FiO2 05/24/18 09:04 135/60 05/24/18 09:00 Room Air 05/24/18 08:00 97.1 78 18 135/60 (85) 99 05/24/18 07:54 98 18 Nasal Cannula 2.0 28 05/24/18 04:00 98.6 89 16 136/56 (82) 93 05/24/18 02:38 98 18 99 Nasal Cannula 2.0 28 05/24/18 02:17 92 20 98 Nasal Cannula 2.0 28 05/24/18 00:00 99.0 91 22 131/53 (79) 96 05/23/18 22:27 95 22 Nasal Cannula 2.0 28 05/23/18 22:27 95 22 100 Nasal Cannula 2.0 28 05/23/18 22:00 94 18 Nasal Cannula 2.0 28 05/23/18 21:17 Room Air 05/23/18 20:00 98.8 87 18 142/79 (100) 100 05/23/18 16:00 97.9 97 19 141/70 (93) 97 Intake and Output 05/23/18 05/24/18 19:00 07:00 Intake Total 960 ml Output Total 420 ml 250 ml Balance 540 ml -250 ml Intake Oral 960 ml Output Urine Total 420 ml 250 ml # Bowel Movements 4 Objective General Appearance: cachetic HEENT: normocephalic, atraumatic Respiratory/Chest: chest wall non-tender, lungs clear Cardiovascular: normal peripheral pulses, normal rate Abdomen: normal bowel sounds, soft, non tender Genitourinary: normal external genitalia Extremities: no clubbing Skin: no lesions Neurologic/Psychiatric: normal mood/affect Musculoskeletal: normal muscle bulk Microbiology Date/Time Source Procedure Growth Status 05/21/18 16:45 Blood Blood Culture - Preliminary NO GROWTH AFTER 48 HOURS Resulted 05/21/18 16:45 Blood Blood Culture - Preliminary NO GROWTH AFTER 48 HOURS Resulted Current Medications Medications (Trade) Dose Ordered Sig/Rafa Route PRN Reason Start Time Stop Time Status Last Admin Dose Admin Acetaminophen (Tylenol) 650 mg Q4H PRN ORAL fever 05/20/18 08:54 06/17/18 08:53 Al Hydroxide/Mg Hydroxide (Mylanta II) 30 ml Q6H PRN ORAL dyspepsia 05/20/18 08:54 06/17/18 08:53 Clonidine HCl (Catapres Tab) 0.1 mg Q2H PRN ORAL For High Blood Pressure 05/20/18 17:30 06/19/18 17:29 Dextrose (Dextrose 50%) 25 ml Q30M PRN IV Hypoglycemia 05/20/18 09:00 06/19/18 08:55 Dextrose (Dextrose 50%) 50 ml Q30M PRN IV hypoglycemia 05/20/18 09:00 06/19/18 08:59 Levothyroxine Sodium (Synthroid) 25 mcg DAILY@0630 ORAL 05/21/18 06:30 06/20/18 06:29 05/24/18 05:50 Lisinopril (Prinivil) 40 mg DAILY ORAL 05/21/18 09:00 06/20/18 08:59 05/24/18 09:04 Lorazepam (Ativan 2mg/ml 1ml) 0.5 mg Q4H PRN IV For Anxiety 05/20/18 08:54 05/25/18 08:53 05/21/18 09:57 Morphine Sulfate (Morphine Sulfate) 2 mg Q4H PRN IVP pain 05/20/18 08:54 05/25/18 08:53 Ondansetron HCl (Zofran) 4 mg Q6H PRN IVP Nausea & Vomiting 05/20/18 08:55 06/17/18 08:54 Polyethylene Glycol (Miralax) 17 gm HSPRN PRN ORAL Constipation 05/20/18 08:55 06/17/18 08:54 Zolpidem Tartrate (Ambien) 5 mg HSPRN PRN ORAL Insomnia 05/20/18 08:55 05/25/18 08:54 Bridger Robin MD May 24, 2018 12:53
--- NOTE | 2018-05-24 14:32 | General Progress Note ---
Assessment/Plan Problem List: (1) Malnutrition ICD Codes: E46 - Unspecified protein-calorie malnutrition SNOMED: 69751520 (2) Diabetes ICD Codes: E11.9 - Type 2 diabetes mellitus without complications SNOMED: 80001154 (3) Anemia ICD Codes: D64.9 - Anemia, unspecified SNOMED: 758326592 (4) HTN (hypertension) ICD Codes: I10 - Essential (primary) hypertension SNOMED: 57424418 (5) Altered level of consciousness ICD Codes: R40.4 - Transient alteration of awareness SNOMED: 7514338 (6) COPD exacerbation ICD Codes: J44.1 - Chronic obstructive pulmonary disease with (acute) exacerbation SNOMED: 147562897 (7) Dehydration ICD Codes: E86.0 - Dehydration SNOMED: 61743648 (8) COPD (chronic obstructive pulmonary disease) ICD Codes: J44.9 - Chronic obstructive pulmonary disease, unspecified SNOMED: 61493333 (9) Sepsis ICD Codes: A41.9 - Sepsis, unspecified organism SNOMED: 80848883 Assessment/Plan o2 pulm tx pt bp bs control cbc bmp am dc if w hh clear Subjective Constitutional: Reports: weakness Allergies: Coded Allergies: PENICILLINS (Verified Allergy, Severe, Hives, 04/19/18) All Systems: reviewed and negative except above Subjective o2nc sl anxious Objective Last 24 Hour Vital Signs Date Time Temp Pulse Resp B/P (MAP) Pulse Ox O2 Delivery O2 Flow Rate FiO2 05/24/18 09:04 135/60 05/24/18 09:00 Room Air 05/24/18 08:00 97.1 78 18 135/60 (85) 99 05/24/18 07:54 98 18 Nasal Cannula 2.0 28 05/24/18 04:00 98.6 89 16 136/56 (82) 93 05/24/18 02:38 98 18 99 Nasal Cannula 2.0 28 05/24/18 02:17 92 20 98 Nasal Cannula 2.0 28 05/24/18 00:00 99.0 91 22 131/53 (79) 96 05/23/18 22:27 95 22 Nasal Cannula 2.0 28 05/23/18 22:27 95 22 100 Nasal Cannula 2.0 28 05/23/18 22:00 94 18 Nasal Cannula 2.0 28 05/23/18 21:17 Room Air 05/23/18 20:00 98.8 87 18 142/79 (100) 100 05/23/18 16:00 97.9 97 19 141/70 (93) 97 Intake and Output 05/23/18 05/24/18 19:00 07:00 Intake Total 960 ml Output Total 420 ml 250 ml Balance 540 ml -250 ml Intake Oral 960 ml Output Urine Total 420 ml 250 ml # Bowel Movements 4 Height (Feet): 5 Height (Inches): 7.00 Weight (Pounds): 116 General Appearance: lethargic EENT: normal ENT inspection Neck: normal alignment Cardiovascular: normal peripheral pulses, normal rate, regular rhythm Respiratory/Chest: chest wall non-tender, lungs clear, normal breath sounds Abdomen: normal bowel sounds, non tender, soft Extremities: normal inspection Edema: no edema noted Arm (L), no edema noted Arm (R), no edema noted Leg (L), no edema noted Leg (R), no edema noted Pedal (L), no edema noted Pedal (R), no edema noted Generalized Neurologic: responsive, motor weakness Skin: normal pigmentation, warm/dry Julien Chery DO May 24, 2018 14:32
--- NOTE | 2018-05-25 13:19 | Discharge Summary ---
Discharge Summary Discharge Summary _ DATE OF ADMISSION: 05/18/2018 DATE OF DISCHARGE: 05/24/2018 DISCHARGED BY: Dr. Julien Chery CONSULTANTS: Dr. Bridger Hickman BRIEF HOSPITAL COURSE: Patient is an 87-year-old male, who was brought in by EMS after being found laying on the ground. Patient lives by himself. He was noted to have history of COPD. He was noticed to be unable to ambulate. He has medical history significant for hypertension, COPD, asthma, prostate cancer. On evaluation at the ED, he was found to have elevated blood pressure 190/96, pulse was 102. Blood work showed no leukocytosis, hemoglobin 12, hematocrit 41 , potassium 3.2 and lactic acid 1.5. AST was elevated to 51. CK was 651. Troponin was negative. EKG was a normal sinus rhythm, with no acute ischemic changes. TSH was elevated to 14. Urinalysis was without evidence of UTI. CT of the head revealed no acute intracranial bleed, mass-effect or edema. There were multiple old lacunar infarcts and severe atrophy of the brain. He was then admitted for altered level of consciousness. He was given nebulizer treatments. He was started on antitussives as needed. TSH was elevated with low free T3. He was started on low-dose thyroid replacement. He was given PT and OT. He was given pain management. He was given lisinopril for blood pressure control. Potassium replacement was given. Echocardiogram done showed ejection fraction of 55-60% with no evidence of left ventricular hypertrophy. He was initially started on IV vancomycin. Blood culture showed growth of diphtheroids, possibly contaminant. Urine culture with Proteus. He had elevated liver tests. Abdominal CT showed gallbladder sludge versus stones. PSA and CEA were normal. Brain MRI showed chronic age-related changes negative for acute intracranial bleed, mass-effect or infarct. He was eventually discharged home with home health. FINAL DIAGNOSES: Acute metabolic encephalopathy Unspecified protein calorie malnutrition Diabetes mellitus Anemia Hypertensive urgency COPD Prostate CA Impaired mobility Elevated liver enzymes Leukocytosis likely reactive Diphtheroid bacteremia likely contaminant Asymptomatic bacteriuria Hypernatremia Hypokalemia Sclerotic focus in the left ilium, r/o bone mets DISPOSITION: Patient was discharged home with home health. DISCHARGE MEDICATIONS: Refer to Discharge Medication List. DISCHARGE INSTRUCTIONS: Follow-up in a week. I have been assigned to dictate discharge summary on this account, and I was not involved in the patient's management. Elvia Rucker NP May 25, 2018 13:19
== END 2018-05-24 14:50 | disposition home health service (06) | DRG 71 ==
LOC: EDBD 15:28 → EMR 15:57 → EDUNIT# 15:57 → 2W 17:33 → EDBEDREQ 17:41 → 4E 05-20 08:45
DX: G93.41 Metabolic encephalopathy (principal); E46 Unspecified protein-calorie malnutrition; E87.0 Hyperosmolality and hypernatremia; J44.9 Chronic obstructive pulmonary disease, unspecified; E86.0 Dehydration; M47.897 Other spondylosis, lumbosacral region; Z60.2 Problems related to living alone; Z88.0 Allergy status to penicillin; D64.9 Anemia, unspecified; I10 Essential (primary) hypertension; E11.9 Type 2 diabetes mellitus without complications; Z85.46 Personal history of malignant neoplasm of prostate; I16.0 Hypertensive urgency; Z74.09 Other reduced mobility; R79.89 Other specified abnormal findings of blood chemistry; E87.6 Hypokalemia; Z86.73 Personal history of transient ischemic attack (TIA), and cerebral infarction without residual deficits; Z91.81 History of falling; M81.0 Age-related osteoporosis without current pathological fracture
CPT/HCPCS: 36415; 70450; 70551; 71045; 74176; 77075; 80048; 80053; 80061; 81001; 81003; 82378; 82550; 82553; 83036; 83605; 83690; 83735; 83880; 84100; 84153; 84154; 84439; 84443; 84481; 84484; 85007; 85025; 86703; 86704; 86705; 86708; 86709; 86710; 86803; 86850; 86900; 86901; 87040; 87086; 87181; 87340; 87517; 87522; 93005; 93306; 93970; 94640; 94664; 96361; 96374; 97803; 99285; J7620; J8499